=== PATIENT | male | born 1930 | race Caucasian/White ===

== ENCOUNTER 2016-11-24 09:32 | Inpatient (IN) | payer MEDICARE, MEDICAID ==
[~2016-11-24] VITALS: Ht 170.2 cm; Wt 104.1 kg
[~2016-11-24 09:32] MED LIST: ALBUPOW26 INH; ASPI81TA13 PO; CAR3125T NG; CHOL20007 PO; CITA-77 PO; CYAN100023 PO; DOXY-216 PO; FURO20TA3 PO; HYDR-2601 PO; IPR002IS NEB; LOR05T PO; MEMA10TA PO; MULT-775 PO; MULTCAP45 PO; POTA10TA51 PO; RIV20T PO; SIMV20TA90 NG; TAM04C PO
[2016-11-24] MEDS ORDERED: methylPREDNISolone SOD SUCC 125 MG/2 ML VL IV ONE (10:45)
[2016-11-24] MEDS ORDERED: cefTRIAXone 1GM/50ML D5W 50 ML IV ONE (10:45)
[2016-11-24] MEDS ORDERED: IPRATROPIUM BROM 0.5 MG/2.5ML INH SOL NEB ONE (10:45)
[2016-11-24] MEDS ORDERED: ALBUTEROL SULF 2.5 MG/0.5ML(0.5%) NEB SOLN NEB ONE (10:45)
[2016-11-24 11:26] LABS: Basophils # (auto) 0 uL; DEFINITIVE VIEW TRANSMISSION; Eosinophils # (auto) 0 uL; Eosinophils % (auto) 0.3 % (0.0-7.0); Hematocrit 29.3 % (41.0-53.0); Hemoglobin 8.6 g/dL (13.5-17.5); Lymphocytes # (auto) 0.7 uL; Mean Corpuscular Hemoglobin 21.9 pg (28.0-32.0); Mean Corpuscular Hgb Conc. 29.5 g/dL (32.0-36.0); Mean Corpuscular Volume 74.4 fL (80.0-100.0); Mean Platelet Volume 8.9 fL (7.4-10.4); Monocytes # (auto) 0.5 uL; Monocytes % (auto) 5.6 % (0.0-12.0); Neutrophils % (auto) 85.1 % (37.0-80.0); Platelet Count (auto) 269 10^3/uL (140-450); Red Cell Distribution Width 22.5 % (11.6-16.0); White Blood Cell 8.2 10^3/uL (4.4-10.8)
[2016-11-24 11:35] VITALS: BP 119/64
[2016-11-24 11:36] LABS: Platelet Estimate Adequate
[2016-11-24 11:38] LABS: Anisocytosis Moderate; Hypochromia Moderate; Schistocytes FEW
[2016-11-24 11:39] LABS: Ovalocytes FEW; Polychromasia Slight
[2016-11-24 11:40] LABS: Prothrombin Time 11.9 sec (9.37-12.3)
[2016-11-24 11:45] LABS: INR 1.16 (0.9-1.15)
[2016-11-24 11:47] LABS: Albumin 3.3 g/dL (3.4-5.0); BUN/Creatinine Ratio 20.3; Bilirubin, Total 0.3 mg/dL (0.2-1.0); Calcium 8.2 mg/dL (8.5-10.1); Magnesium 2.3 mg/dL (1.6-2.6); Potassium 4.7 mmol/L (3.5-5.1); Total Protein 7.2 g/dL (6.4-8.2)
[2016-11-24 12:00] LABS: B-Type Natriuretic Peptide 206.39 pg/mL (0-100); Temperature: 22.7 C (20.0-25.0)
[2016-11-24] MEDS ORDERED: InsuLIN REG 1unit/0.01ml Soln (100units/ml) SC ONE (12:00)
[2016-11-24] MEDS ORDERED: ENOXAPARIN SOD 100 MG/1 ML SYRINGE SC ONE (12:00)
[2016-11-24 12:15] LABS: Urine RBC None Seen /hpf (0 - 3)
[2016-11-24] MEDS ORDERED: IOHEXOL 350 MG/ML 100ML IJ ONE (12:19)
[2016-11-24 12:31] LABS: Urine Bilirubin Negative (Negative); Urine Blood Negative /uL (Negative); Urine Color Yellow (Yellow); Urine Ketone Negative (Negative); Urine Nitrite Negative (Negative); Urine Urobilinogen Normal (Negative)
[2016-11-24 12:33] LABS: Urine Glucose 2+ mg/dL (Normal)
[2016-11-24] MEDS ORDERED: LISI2.5T47 PO (13:22)
[2016-11-24] MEDS ORDERED: NITROGLYCERIN 0.4 MG SL TAB SL PRN (15:00)
[2016-11-24] MEDS ORDERED: FUROSEMIDE 40 MG/4 ML VIAL IV ONE (15:00)
[2016-11-24] MEDS ORDERED: MORPHINE SULF INJ 2 MG/ML SYRINGE 1ML IV PRN (15:00)
[2016-11-24] MEDS ORDERED: ONDANSETRON HCL 4 MG/2 ML VIAL IV PRN (15:15)
[2016-11-24] MEDS ORDERED: DEXTROSE (50%) 50ML SYRG IV PRN (15:15)
[2016-11-24 15:43] VITALS: BP 148/93
[2016-11-24] MEDS: ACCU-CHEK COMFORT CURVE STRIP VI SCH (18:51)
[2016-11-24] MEDS: InsuLIN REG 1unit/0.01ml Soln (100units/ml) SC SCH (18:53)
[2016-11-24] MEDS: RIVAROXABAN 20 MG TAB PO SCH (19:08)
[2016-11-24] MEDS: IPRATROPIUM BROM 0.5 MG/2.5ML INH SOL NEB SCH (19:13)
[2016-11-24] MEDS: ALBUTEROL SULF 2.5 MG/0.5ML(0.5%) NEB SOLN NEB SCH (19:13)
[2016-11-24 19:58] VITALS: BP 151/76
[2016-11-24 21:49] VITALS: BP 139/70
[2016-11-24] MEDS: CARVEDILOL 3.125 MG TAB PO SCH (22:21)
[2016-11-24] MEDS: ATORVASTATIN 20 MG TAB PO SCH (22:21)
[2016-11-24 23:43] VITALS: BP 150/55
[2016-11-25] VITALS (9 sets, daily range): BP systolic 112–147; BP diastolic 50–82
[2016-11-25] MEDS: ACCU-CHEK COMFORT CURVE STRIP VI SCH ×4 (00:07→17:48)
[2016-11-25] MEDS: InsuLIN REG 1unit/0.01ml Soln (100units/ml) SC SCH ×4 (00:33→17:46)
[2016-11-25 05:54] LABS: DEFINITIVE VIEW TRANSMISSION; Hematocrit 26.9 % (41.0-53.0); Hemoglobin 7.9 g/dL (13.5-17.5); Mean Corpuscular Hemoglobin 21.7 pg (28.0-32.0); Mean Corpuscular Hgb Conc. 29.4 g/dL (32.0-36.0); Mean Corpuscular Volume 73.9 fL (80.0-100.0); Platelet Count (auto) 255 10^3/uL (140-450); White Blood Cell 7.3 10^3/uL (4.4-10.8)
[2016-11-25 06:11] LABS: Calcium 8.4 mg/dL (8.5-10.1)
[2016-11-25 06:14] LABS: BUN/Creatinine Ratio 23.8
[2016-11-25 06:18] LABS: Red Cell Distribution Width 22.8 % (11.6-16.0)
[2016-11-25 06:19] LABS: Metamyelocytes % 0; Myelocytes % 0; Promyelocytes % 0; Reactive Lymphocytes 0
[2016-11-25] MEDS: IPRATROPIUM BROM 0.5 MG/2.5ML INH SOL NEB SCH ×4 (06:29→14:43)
[2016-11-25] MEDS: ALBUTEROL SULF 2.5 MG/0.5ML(0.5%) NEB SOLN NEB SCH ×4 (06:29→14:43)
[2016-11-25] MEDS: BUDESONIDE (INHALATION) 0.5 MG/2 ML NEB NEB SCH ×2 (06:29→19:03)
[2016-11-25 06:51] LABS: Anisocytosis Slight; Hypochromia Slight; Platelet Estimate Adequate
[2016-11-25] MEDS: CARVEDILOL 3.125 MG TAB PO SCH ×2 (10:00→22:21)
[2016-11-25] MEDS ORDERED: FUROSEMIDE 40 MG/4 ML VIAL IV SCH (10:00)
[2016-11-25] MEDS: POTASSIUM CHL 20 Meq TABLET PO SCH (10:08)
[2016-11-25] MEDS: LISINOPRIL 5 MG TAB PO SCH (10:09)
[2016-11-25] MEDS: HYDROcodone-ACET 5/325MG TAB PO PRN (14:37)
[2016-11-25] MEDS: RIVAROXABAN 20 MG TAB PO SCH (18:01)
[2016-11-25] MEDS: ATORVASTATIN 20 MG TAB PO SCH (22:21)
[2016-11-26] MEDS: ACCU-CHEK COMFORT CURVE STRIP VI SCH ×4 (00:51→18:00)
[2016-11-26 05:00] VITALS: BP 134/58
[2016-11-26] MEDS: BUDESONIDE (INHALATION) 0.5 MG/2 ML NEB NEB SCH ×2 (06:04→18:10)
[2016-11-26] MEDS: ALBUTEROL SULF 2.5 MG/0.5ML(0.5%) NEB SOLN NEB SCH ×4 (06:04→18:33)
[2016-11-26] MEDS: IPRATROPIUM BROM 0.5 MG/2.5ML INH SOL NEB SCH ×4 (06:04→18:33)
[2016-11-26] MEDS: InsuLIN REG 1unit/0.01ml Soln (100units/ml) SC SCH ×4 (06:18→18:00)
[2016-11-26] MEDS ORDERED: FUROSEMIDE 40 MG/4 ML VIAL IV ONE (08:15)
[2016-11-26 09:14] LABS: DEFINITIVE VIEW TRANSMISSION; Hematocrit 26.6 % (41.0-53.0); Mean Corpuscular Volume 73.4 fL (80.0-100.0); Platelet Count (auto) 260 10^3/uL (140-450); Red Cell Distribution Width 22.3 % (11.6-16.0); White Blood Cell 8.2 10^3/uL (4.4-10.8)
[2016-11-26 09:21] LABS: Metamyelocytes % 0; Myelocytes % 0; Promyelocytes % 0; Reactive Lymphocytes 0
[2016-11-26 09:22] VITALS: BP 129/65
[2016-11-26 09:31] LABS: Anisocytosis Slight; Hypochromia Slight; Platelet Estimate Adequate
[2016-11-26 09:36] LABS: Calcium 8.2 mg/dL (8.5-10.1); Potassium 3.9 mmol/L (3.5-5.1)
[2016-11-26] MEDS: LISINOPRIL 5 MG TAB PO SCH (10:15)
[2016-11-26] MEDS: POTASSIUM CHL 20 Meq TABLET PO SCH (10:15)
[2016-11-26] MEDS: CARVEDILOL 3.125 MG TAB PO SCH ×2 (10:15→21:42)
[2016-11-26] MEDS: HYDROcodone-ACET 5/325MG TAB PO PRN (10:32)
[2016-11-26 13:13] VITALS: BP 112/47
[2016-11-26 15:22] VITALS: BP 115/49
[2016-11-26] MEDS: RIVAROXABAN 20 MG TAB PO SCH (18:56)
[2016-11-26 21:38] VITALS: BP 135/69
[2016-11-26] MEDS: ATORVASTATIN 20 MG TAB PO SCH (21:42)
[2016-11-27] MEDS: InsuLIN REG 1unit/0.01ml Soln (100units/ml) SC SCH ×4 (00:52→17:32)
[2016-11-27 04:34] VITALS: BP 116/69
[2016-11-27] MEDS: HYDROcodone-ACET 5/325MG TAB PO PRN ×2 (05:35→17:28)
[2016-11-27] MEDS: ACCU-CHEK COMFORT CURVE STRIP VI SCH ×4 (05:36→17:32)
[2016-11-27] MEDS: ALBUTEROL SULF 2.5 MG/0.5ML(0.5%) NEB SOLN NEB SCH ×4 (06:00→18:16)
[2016-11-27] MEDS: IPRATROPIUM BROM 0.5 MG/2.5ML INH SOL NEB SCH ×4 (06:00→18:16)
[2016-11-27 06:16] LABS: BUN/Creatinine Ratio 28.6; Calcium 8.3 mg/dL (8.5-10.1); Potassium 3.6 mmol/L (3.5-5.1)
[2016-11-27 06:19] LABS: DEFINITIVE VIEW TRANSMISSION; Hematocrit 27.3 % (41.0-53.0); Hemoglobin 8.1 g/dL (13.5-17.5); Mean Corpuscular Hemoglobin 21.7 pg (28.0-32.0); Mean Corpuscular Hgb Conc. 29.8 g/dL (32.0-36.0); Mean Corpuscular Volume 73.1 fL (80.0-100.0); Mean Platelet Volume 9.2 fL (7.4-10.4); Platelet Count (auto) 255 10^3/uL (140-450); Red Cell Distribution Width 22.2 % (11.6-16.0); White Blood Cell 6.6 10^3/uL (4.4-10.8)
[2016-11-27 07:29] LABS: Metamyelocytes % 0; Myelocytes % 0; Promyelocytes % 0; Reactive Lymphocytes 0
[2016-11-27 08:00] VITALS: BP 128/71
[2016-11-27 08:22] LABS: Anisocytosis Slight; Hypochromia Slight; Platelet Estimate Adequate; Polychromasia Slight
[2016-11-27] MEDS: BUDESONIDE (INHALATION) 0.5 MG/2 ML NEB NEB SCH ×2 (10:25→18:16)
[2016-11-27] MEDS: POTASSIUM CHL 20 Meq TABLET PO SCH (10:26)
[2016-11-27] MEDS: LISINOPRIL 5 MG TAB PO SCH (10:27)
[2016-11-27] MEDS: CARVEDILOL 3.125 MG TAB PO SCH ×2 (10:27→22:12)
[2016-11-27] MEDS: FUROSEMIDE 40 MG/4 ML VIAL IV SCH (10:27)
[2016-11-27 12:00] VITALS: BP 107/54
[2016-11-27 12:43] VITALS: BP 128/71
[2016-11-27 16:00] VITALS: BP 137/54
[2016-11-27] MEDS: RIVAROXABAN 20 MG TAB PO SCH (17:27)
[2016-11-27] MEDS: FERROUS SULFATE 325 MG TAB PO SCH (17:27)
[2016-11-27 22:00] VITALS: BP 110/56
[2016-11-27] MEDS: ATORVASTATIN 20 MG TAB PO SCH (22:12)
[2016-11-28 05:30] VITALS: BP 121/68
[2016-11-28] MEDS: ACCU-CHEK COMFORT CURVE STRIP VI SCH ×3 (06:15→12:04)
[2016-11-28] MEDS: InsuLIN REG 1unit/0.01ml Soln (100units/ml) SC SCH ×3 (06:16→14:10)
[2016-11-28] MEDS: IPRATROPIUM BROM 0.5 MG/2.5ML INH SOL NEB SCH ×3 (06:54→14:20)
[2016-11-28] MEDS: ALBUTEROL SULF 2.5 MG/0.5ML(0.5%) NEB SOLN NEB SCH ×4 (06:54→14:27)
[2016-11-28 07:30] VITALS: BP 114/50
[2016-11-28] MEDS: FERROUS SULFATE 325 MG TAB PO SCH (08:45)
[2016-11-28] MEDS: LISINOPRIL 5 MG TAB PO SCH (10:00)
[2016-11-28] MEDS: CARVEDILOL 3.125 MG TAB PO SCH (10:00)
[2016-11-28] MEDS: BUDESONIDE (INHALATION) 0.5 MG/2 ML NEB NEB SCH (10:08)
[2016-11-28] MEDS: FUROSEMIDE 40 MG/4 ML VIAL IV SCH (10:27)
[2016-11-28] MEDS: POTASSIUM CHL 20 Meq TABLET PO SCH (10:27)
[2016-11-28 12:47] VITALS: BP_SYST 134
[2016-11-28 14:32] VITALS: BP 114/50
== END 2016-11-28 15:45 | disposition home or self-care (01) | DRG 291 ==
LOC: EDUNIT# 09:32 → EDBD 09:32 → ER 09:36 → TELE 09:37 → DOU IN ICU 23:06 → CENTRAL 11-25 11:24 → TELE-CENTR 11-25 19:43
PROVIDERS: ADMIT Internal Medicine; ATTEND Internal Medicine
PROC: 5A09457 Assistance with Respiratory Ventilation, 24-96 Consecutive Hours, Continuous Positive Airway Pressure (ICD-10-PCS; principal; 2016-11-24)
DX: I50.33 Acute on chronic diastolic (congestive) heart failure (principal); J96.20 Acute and chronic respiratory failure, unspecified whether with hypoxia or hypercapnia; G93.41 Metabolic encephalopathy; J18.9 Pneumonia, unspecified organism; D68.69 Other thrombophilia; E87.2 Acidosis; J44.1 Chronic obstructive pulmonary disease with (acute) exacerbation; J45.901 Unspecified asthma with (acute) exacerbation; I11.0 Hypertensive heart disease with heart failure; D64.9 Anemia, unspecified; E11.9 Type 2 diabetes mellitus without complications; E66.01 Morbid (severe) obesity due to excess calories; E78.00 Pure hypercholesterolemia, unspecified; E78.5 Hyperlipidemia, unspecified; I48.2 Chronic atrial fibrillation; I67.2 Cerebral atherosclerosis; I70.0 Atherosclerosis of aorta; K21.9 Gastro-esophageal reflux disease without esophagitis; K80.20 Calculus of gallbladder without cholecystitis without obstruction; Z82.49 Family history of ischemic heart disease and other diseases of the circulatory system; Z86.718 Personal history of other venous thrombosis and embolism; Z86.73 Personal history of transient ischemic attack (TIA), and cerebral infarction without residual deficits; Z87.891 Personal history of nicotine dependence; Z99.81 Dependence on supplemental oxygen; Z68.35 Body mass index [BMI] 35.0-35.9, adult
CPT/HCPCS: 36415; 36600; 51702; 70450; 71010; 71020; 71275; 80048; 80053; 81001; 82805; 82962; 83605; 83735; 83880; 84484; 85007; 85025; 85027; 85379; 85610; 85730; 87040; 87081; 93005; 93970; 94640; 94660; 96365; 96372; 96375; 97001; 99291; J0696; J1815

== ENCOUNTER 2017-12-07 20:51 | Inpatient (IN) | payer MEDICARE, MEDICAID ==
[~2017-12-07] VITALS: Ht 167.6 cm; Wt 103.5 kg
[~2017-12-07 20:51] MED LIST changes: -CHOL20007 PO; -CYAN100023 PO; -IPR002IS NEB; +LISI2.5T47 PO; -LOR05T PO; +LORA-654 PO; -MULT-775 PO; -MULTCAP45 PO; -POTA10TA51 PO; +POTA20TA53 PO
[2017-12-07 21:35] LABS: Basophils # (auto) 0 uL; Eosinophils # (auto) 0.1 uL; Eosinophils % (auto) 1.2 % (0.0-7.0); Monocytes # (auto) 0.8 uL; White Blood Cell 6.6 10^3/uL (4.4-10.8)
[2017-12-07 21:48] LABS: Basophils % (auto) 0.7 % (0.0-2.0); Hematocrit 28.1 % (41.0-53.0); Hemoglobin 8.4 g/dL (13.5-17.5); Lymphocytes # (auto) 1.4 uL; Lymphocytes % (auto) 21.1 % (10.0-50.0); Mean Corpuscular Hemoglobin 22.4 pg (28.0-32.0); Mean Corpuscular Volume 74.6 fL (80.0-100.0); Monocytes % (auto) 12.5 % (0.0-12.0); Neutrophils # (auto) 4.2 uL; Neutrophils % (auto) 64.5 % (37.0-80.0); Platelet Count (auto) 205 10^3/uL (140-450); Red Blood Cells 3.76 10^6/uL (4.5-5.90)
[2017-12-07 21:49] LABS: Red Cell Distribution Width 25.6 % (11.8-14.3)
[2017-12-07 21:54] LABS: Albumin 3.1 g/dL (3.4-5.0); BUN/Creatinine Ratio 22.7; Calcium 7.8 mg/dL (8.5-10.1); Magnesium 2.4 mg/dL (1.6-2.6); Potassium 4.4 mmol/L (3.5-5.1)
[2017-12-07 21:59] LABS: Bilirubin, Total 0.2 mg/dL (0.2-1.0); Total Protein 7.3 g/dL (6.4-8.2)
[2017-12-07 22:12] LABS: INR 1.2 (0.9-1.15); Partial Thromboplastin Time 30.2 sec (22.64-33.71); Prothrombin Time 13.1 sec (9.37-12.3)
[2017-12-07] MEDS ORDERED: LEVOFLOXACIN 750MG 150 ML IV ONE (23:45)
[2017-12-07] MEDS ORDERED: FUROSEMIDE 20 MG/2 ML VIAL IV ONE (23:45)
[2017-12-08] MEDS ORDERED: HYDROcodone-ACET 5/325MG TAB PO ONE (00:15)
[2017-12-08 01:59] VITALS: BP 147/75
[2017-12-08 03:43] VITALS: BP 147/75
[2017-12-08] MEDS ORDERED: LORazepam 0.5 MG TAB PO PRN (04:30)
[2017-12-08] MEDS ORDERED: ACETAMINOPHEN 500 MG TAB PO PRN (04:30)
[2017-12-08 08:03] LABS: Basophils # (auto) 0 uL; Eosinophils # (auto) 0.1 uL; Hemoglobin 8.4 g/dL (13.5-17.5); Monocytes # (auto) 0.7 uL; White Blood Cell 5.8 10^3/uL (4.4-10.8)
[2017-12-08 08:07] LABS: Basophils % (auto) 0.7 % (0.0-2.0); Eosinophils % (auto) 2.1 % (0.0-7.0); Lymphocytes # (auto) 1.3 uL; Lymphocytes % (auto) 22.5 % (10.0-50.0); Mean Corpuscular Hemoglobin 22.4 pg (28.0-32.0); Mean Corpuscular Hgb Conc. 29.8 g/dL (32.0-36.0); Monocytes % (auto) 11.9 % (0.0-12.0); Neutrophils # (auto) 3.7 uL; Neutrophils % (auto) 62.8 % (37.0-80.0); Platelet Count (auto) 192 10^3/uL (140-450); Red Blood Cells 3.74 10^6/uL (4.5-5.90); Red Cell Distribution Width 25.1 % (11.8-14.3)
[2017-12-08] MEDS: HYDROcodone-ACET 5/325MG TAB PO PRN ×2 (08:18→22:07)
[2017-12-08 08:34] LABS: BUN/Creatinine Ratio 23.5; Calcium 8.2 mg/dL (8.5-10.1); Potassium 4.1 mmol/L (3.5-5.1)
[2017-12-08] MEDS ORDERED: FUROSEMIDE 40 MG/4 ML VIAL IV ONE (10:15)
[2017-12-08] MEDS: CITALOPRAM HYDROBR 20 MG TAB PO SCH (10:45)
[2017-12-08] MEDS: CARVEDILOL 3.125 MG TAB PO SCH ×2 (10:45→22:06)
[2017-12-08] MEDS: LISINOPRIL 5 MG TAB PO SCH (10:46)
[2017-12-08 15:40] VITALS: BP 133/60
[2017-12-08 17:00] VITALS: BP 133/60
[2017-12-08] MEDS: TAMSULOSIN HYDROCHLORIDE 0.4 MG CAP PO SCH (18:11)
[2017-12-08 21:19] LABS: Urine Bacteria None Seen /hpf (None Seen)
[2017-12-08 21:38] LABS: Urine Blood Negative /uL (Negative)
[2017-12-08 21:44] LABS: Urine WBC 1 /hpf (0 - 3)
[2017-12-08 22:00] VITALS: BP 129/58
[2017-12-09] VITALS (7 sets, daily range): BP systolic 99–149; BP diastolic 44–76
[2017-12-09] MEDS: ALBUTEROL SULF 2.5 MG/0.5ML(0.5%) NEB SOLN NEB PRN ×2 (08:30→21:27)
[2017-12-09] MEDS: CITALOPRAM HYDROBR 20 MG TAB PO SCH (11:18)
[2017-12-09] MEDS: LISINOPRIL 5 MG TAB PO SCH (11:20)
[2017-12-09] MEDS: CARVEDILOL 3.125 MG TAB PO SCH (11:21)
[2017-12-09] MEDS: HYDROcodone-ACET 5/325MG TAB PO PRN (17:24)
[2017-12-09] MEDS: FUROSEMIDE 40 MG/4 ML VIAL IV SCH (17:27)
[2017-12-09] MEDS: TAMSULOSIN HYDROCHLORIDE 0.4 MG CAP PO SCH (17:45)
[2017-12-10] VITALS (7 sets, daily range): BP systolic 105–134; BP diastolic 41–75
[2017-12-10] MEDS: CARVEDILOL 3.125 MG TAB PO SCH ×3 (00:08→22:14)
[2017-12-10] MEDS: FUROSEMIDE 40 MG/4 ML VIAL IV SCH ×2 (06:36→10:21)
[2017-12-10] MEDS ORDERED: acetaZOLAMIDE SODIUM 500 MG VL IV ONE (07:45)
[2017-12-10] MEDS: CITALOPRAM HYDROBR 20 MG TAB PO SCH (10:21)
[2017-12-10] MEDS: LISINOPRIL 5 MG TAB PO SCH (10:22)
[2017-12-10] MEDS: HYDROcodone-ACET 5/325MG TAB PO PRN (10:23)
[2017-12-10] MEDS: ALBUTEROL SULF 2.5 MG/0.5ML(0.5%) NEB SOLN NEB PRN (11:20)
[2017-12-10] MEDS: methylPREDNISolone SOD SUCC 40 MG/ML VL IV SCH ×2 (12:46→18:10)
[2017-12-10] MEDS: TAMSULOSIN HYDROCHLORIDE 0.4 MG CAP PO SCH (18:10)
[2017-12-11] VITALS (8 sets, daily range): BP systolic 97–130; BP diastolic 37–81
[2017-12-11] MEDS: methylPREDNISolone SOD SUCC 40 MG/ML VL IV SCH ×3 (00:06→12:23)
[2017-12-11] MEDS: HYDROcodone-ACET 5/325MG TAB PO PRN ×2 (08:47→20:03)
[2017-12-11] MEDS: CITALOPRAM HYDROBR 20 MG TAB PO SCH (10:07)
[2017-12-11] MEDS: FUROSEMIDE 40 MG/4 ML VIAL IV SCH (10:07)
[2017-12-11] MEDS: LISINOPRIL 5 MG TAB PO SCH (10:08)
[2017-12-11] MEDS: CARVEDILOL 3.125 MG TAB PO SCH ×2 (10:08→21:50)
[2017-12-11] MEDS: DOXYCYCLINE HYC 100MG/250ML 250 ML IV SCH (17:04)
[2017-12-11] MEDS: TAMSULOSIN HYDROCHLORIDE 0.4 MG CAP PO SCH (18:40)
[2017-12-11] MEDS: ALBUTEROL SULF 2.5 MG/0.5ML(0.5%) NEB SOLN NEB SCH (19:10)
[2017-12-11] MEDS: BUDESONIDE (INHALATION) 0.5 MG/2 ML NEB NEB SCH (19:11)
[2017-12-11] MEDS: IPRATROPIUM BROM 0.5 MG/2.5ML INH SOL NEB SCH (19:11)
[2017-12-11] MEDS: LORazepam 0.5 MG TAB PO SCH (21:49)
[2017-12-11] MEDS: ATORVASTATIN 20 MG TAB PO SCH (21:50)
[2017-12-12] MEDS: IPRATROPIUM BROM 0.5 MG/2.5ML INH SOL NEB SCH ×4 (00:19→19:57)
[2017-12-12] MEDS: ALBUTEROL SULF 2.5 MG/0.5ML(0.5%) NEB SOLN NEB SCH ×4 (00:19→19:57)
[2017-12-12] MEDS: DOXYCYCLINE HYC 100MG/250ML 250 ML IV SCH (02:11)
[2017-12-12] MEDS: HYDROcodone-ACET 5/325MG TAB PO PRN ×2 (04:16→14:06)
[2017-12-12 05:16] VITALS: BP 110/50
[2017-12-12] MEDS: BUDESONIDE (INHALATION) 0.5 MG/2 ML NEB NEB SCH ×2 (06:49→19:57)
[2017-12-12 08:28] LABS: Basophils # (auto) 0 uL; Eosinophils # (auto) 0 uL; Eosinophils % (auto) 0.1 % (0.0-7.0); Hemoglobin 8.8 g/dL (13.5-17.5)
[2017-12-12 08:30] LABS: Basophils % (auto) 0.2 % (0.0-2.0); Hematocrit 29.2 % (41.0-53.0); Lymphocytes % (auto) 16.5 % (10.0-50.0); Mean Corpuscular Hemoglobin 22.5 pg (28.0-32.0); Mean Corpuscular Hgb Conc. 30.2 g/dL (32.0-36.0); Mean Corpuscular Volume 74.3 fL (80.0-100.0); Monocytes # (auto) 0.8 uL; Monocytes % (auto) 12.8 % (0.0-12.0); Neutrophils # (auto) 4.1 uL; Neutrophils % (auto) 70.4 % (37.0-80.0); Nucleated Red Blood Cells % 0.1 %; Platelet Count (auto) 182 10^3/uL (140-450); Red Blood Cells 3.93 10^6/uL (4.5-5.90); Red Cell Distribution Width 24.5 % (11.8-14.3); White Blood Cell 5.9 10^3/uL (4.4-10.8)
[2017-12-12 08:32] LABS: Albumin 3.2 g/dL (3.4-5.0); BUN/Creatinine Ratio 44.3; Bilirubin, Total 0.3 mg/dL (0.2-1.0); Calcium 8.2 mg/dL (8.5-10.1); Potassium 3.6 mmol/L (3.5-5.1); Total Protein 7.4 g/dL (6.4-8.2)
[2017-12-12 09:00] VITALS: BP 128/54
[2017-12-12] MEDS: CITALOPRAM HYDROBR 20 MG TAB PO SCH (09:59)
[2017-12-12] MEDS: FUROSEMIDE 40 MG/4 ML VIAL IV SCH (09:59)
[2017-12-12] MEDS: LORazepam 0.5 MG TAB PO SCH (09:59)
[2017-12-12] MEDS: POTASSIUM CHL 10 Meq TABLET PO SCH (09:59)
[2017-12-12] MEDS: CARVEDILOL 3.125 MG TAB PO SCH ×2 (10:00→21:25)
[2017-12-12] MEDS: MEMANTINE HCL 5 MG TAB PO SCH (10:00)
[2017-12-12] MEDS: LISINOPRIL 5 MG TAB PO SCH (10:01)
[2017-12-12] MEDS ORDERED: DOCUSATE SOD 100 MG CAP PO ONE (10:45)
[2017-12-12 13:00] VITALS: BP 108/47
[2017-12-12 17:00] VITALS: BP 115/60
[2017-12-12] MEDS: TAMSULOSIN HYDROCHLORIDE 0.4 MG CAP PO SCH (17:53)
[2017-12-12 21:21] VITALS: BP 105/53
[2017-12-12] MEDS: DOCUSATE SOD 100 MG CAP PO SCH (21:25)
[2017-12-12] MEDS: ATORVASTATIN 20 MG TAB PO SCH (21:26)
[2017-12-12] MEDS: DOXYCYCLINE 100 MG TAB/CAP PO SCH (21:26)
[2017-12-12] MEDS ORDERED: LORazepam 0.5 MG TAB PO PRN (22:00)
[2017-12-13] MEDS: IPRATROPIUM BROM 0.5 MG/2.5ML INH SOL NEB SCH ×3 (00:14→12:25)
[2017-12-13] MEDS: ALBUTEROL SULF 2.5 MG/0.5ML(0.5%) NEB SOLN NEB SCH ×3 (00:15→12:24)
[2017-12-13] MEDS: HYDROcodone-ACET 5/325MG TAB PO PRN ×2 (03:34→09:20)
[2017-12-13 05:10] VITALS: BP 127/66
[2017-12-13] MEDS: BUDESONIDE (INHALATION) 0.5 MG/2 ML NEB NEB SCH (07:29)
[2017-12-13 07:49] VITALS: BP 124/68
[2017-12-13] MEDS: DOCUSATE SOD 100 MG CAP PO SCH (09:14)
[2017-12-13] MEDS: LISINOPRIL 5 MG TAB PO SCH (09:16)
[2017-12-13] MEDS: CITALOPRAM HYDROBR 20 MG TAB PO SCH (09:17)
[2017-12-13] MEDS: POTASSIUM CHL 10 Meq TABLET PO SCH (09:17)
[2017-12-13] MEDS: DOXYCYCLINE 100 MG TAB/CAP PO SCH (09:18)
[2017-12-13] MEDS: MEMANTINE HCL 5 MG TAB PO SCH (09:18)
[2017-12-13] MEDS: CARVEDILOL 3.125 MG TAB PO SCH (09:19)
[2017-12-13] MEDS ORDERED: LISI-275 PO (09:20)
[2017-12-13] MEDS ORDERED: FUROSEMIDE 40 MG TAB PO SCH (10:00)
[2017-12-13 11:08] VITALS: BP 124/68
[2017-12-13 11:42] VITALS: BP 124/61
== END 2017-12-13 16:59 | disposition home health service (06) | DRG 291 ==
LOC: EDBD 20:51 → ER 20:51 → TELE 20:52 → EDUNIT# 20:52 → TELE-EAST 12-08 15:34
PROVIDERS: ADMIT Nurse Practitioner Family; ATTEND Internal Medicine
PROC: 5A09357 Assistance with Respiratory Ventilation, Less than 24 Consecutive Hours, Continuous Positive Airway Pressure (ICD-10-PCS; principal; 2017-12-08)
PROC: 5A09357 Assistance with Respiratory Ventilation, Less than 24 Consecutive Hours, Continuous Positive Airway Pressure (ICD-10-PCS; 2017-12-13)
DX: I11.0 Hypertensive heart disease with heart failure (principal); J96.21 Acute and chronic respiratory failure with hypoxia; J18.9 Pneumonia, unspecified organism; I48.1 Persistent atrial fibrillation; J44.1 Chronic obstructive pulmonary disease with (acute) exacerbation; I69.354 Hemiplegia and hemiparesis following cerebral infarction affecting left non-dominant side; I48.2 Chronic atrial fibrillation; E11.9 Type 2 diabetes mellitus without complications; D50.9 Iron deficiency anemia, unspecified; J96.22 Acute and chronic respiratory failure with hypercapnia; I50.43 Acute on chronic combined systolic (congestive) and diastolic (congestive) heart failure; E78.5 Hyperlipidemia, unspecified; F03.90 Unspecified dementia, unspecified severity, without behavioral disturbance, psychotic disturbance, mood disturbance, and anxiety; F41.9 Anxiety disorder, unspecified; I25.10 Atherosclerotic heart disease of native coronary artery without angina pectoris; M10.9 Gout, unspecified; E66.9 Obesity, unspecified; M19.90 Unspecified osteoarthritis, unspecified site; N40.0 Benign prostatic hyperplasia without lower urinary tract symptoms; Z79.82 Long term (current) use of aspirin; Z79.899 Other long term (current) drug therapy; Z82.49 Family history of ischemic heart disease and other diseases of the circulatory system; Z99.81 Dependence on supplemental oxygen; Z88.2 Allergy status to sulfonamides; Z68.36 Body mass index [BMI] 36.0-36.9, adult
CPT/HCPCS: 36415; 36600; 71045; 80048; 80053; 81001; 82805; 83036; 83735; 83880; 84484; 85025; 85379; 85610; 85730; 87081; 93005; 94640; 94660; 96365; 96375; 96376; 97116; 97163; 97530; J1956; J3490

== ENCOUNTER 2018-05-05 10:30 | Inpatient (IN) | payer MEDICARE, MEDICAID ==
[~2018-05-05] VITALS: Ht 180.3 cm; Wt 105.8 kg
[~2018-05-05 10:30] MED LIST changes: +ASPI-498 OR; +CARV3.1240 PO; +FURO40TA4 PO; +HYDR-4683 PO; +LISI-275 PO; +MEM5T PO; +POTA10TA51 PO; +SIMV-8 PO; +TAMS0.4C36 PO
[2018-05-05] MEDS ORDERED: PANTOPRAZOLE 40 MG/10 ML VIAL IV STA (10:38)
[2018-05-05 11:02] LABS: Basophils # (auto) 0 uL; Eosinophils # (auto) 0.1 uL; Eosinophils % (auto) 1.1 % (0.0-7.0); Hemoglobin 8.2 g/dL (13.5-17.5); Lymphocytes # (auto) 1.8 uL; Monocytes # (auto) 0.6 uL
[2018-05-05 11:03] LABS: Basophils % (auto) 0.4 % (0.0-2.0); Hematocrit 26.2 % (41.0-53.0); Lymphocytes % (auto) 27.3 % (10.0-50.0); Mean Corpuscular Hemoglobin 27.7 pg (28.0-32.0); Mean Corpuscular Hgb Conc. 31.2 g/dL (32.0-36.0); Mean Corpuscular Volume 88.6 fL (80.0-100.0); Monocytes % (auto) 8.4 % (0.0-12.0); Neutrophils # (auto) 4.1 uL; Neutrophils % (auto) 62.8 % (37.0-80.0); Platelet Count (auto) 229 10^3/uL (140-450); Red Blood Cells 2.96 10^6/uL (4.5-5.90); Red Cell Distribution Width 18.8 % (11.8-14.3); White Blood Cell 6.6 10^3/uL (4.4-10.8)
[2018-05-05 11:21] LABS: Alanine Aminotransferase 14 U/L (16-61); Albumin 3.3 g/dL (3.4-5.0); Alkaline Phosphatase 78 U/L (45-117); Amylase 42 U/L (25-115); Anion Gap 6 (5-15); Aspartate Aminotransferase 13 U/L (15-37); BUN/Creatinine Ratio 21.2; Bilirubin, Total 0.1 mg/dL (0.2-1.0); Blood Urea Nitrogen 22 mg/dL (7-18); Calcium 8.1 mg/dL (8.5-10.1); Carbon Dioxide 32 mmol/L (21-32); Chloride 103 mmol/L (98-107); GFR African American 87 mL/min; GFR Non-African American 72 mL/min; Glucose 284 mg/dL (74-106); Lipase 152 U/L (73-393); Magnesium 2.4 mg/dL (1.6-2.6); Potassium 4.3 mmol/L (3.5-5.1); Sodium 141 mmol/L (136-145); Total Protein 7.2 g/dL (6.4-8.2)
[2018-05-05] MEDS ORDERED: HYDROcodone-ACET 10/325MG TAB PO ONE (11:30)
[2018-05-05] MEDS ORDERED: MORPHINE SULFATE 8mg/ml INJ SDV IV ONE (11:30)
[2018-05-05 12:24] LABS: Urine Bacteria NONE SEEN /hpf (None Seen); Urine Blood Negative /uL (Negative); Urine Specific Gravity 1.012 (1.001-1.035); Urine WBC <1 /hpf (0 - 3)
[2018-05-05] MEDS ORDERED: SODIUM CHLORIDE 0.9% 1,000 ML IV SCH (15:13)
[2018-05-05] MEDS ORDERED: MORPHINE SULF INJ 2 MG/ML SYRINGE 1ML IV PRN (15:15)
[2018-05-05] MEDS ORDERED: DEXTROSE (50%) 50ML SYRG IV PRN (15:15)
[2018-05-05] MEDS ORDERED: NITROGLYCERIN 0.4 MG SL TAB SL PRN (15:15)
[2018-05-05] MEDS ORDERED: ONDANSETRON HCL 4 MG/2 ML VIAL IV PRN (15:15)
[2018-05-05] MEDS ORDERED: ACETAMINOPHEN 325 MG TAB PO PRN (15:15)
[2018-05-05] MEDS ORDERED: TEMAZEPAM 15 MG CAP PO PRN (15:15)
[2018-05-05] MEDS ORDERED: LORazepam 0.5 MG TAB PO PRN (15:15)
[2018-05-05] MEDS ORDERED: DOCUSATE SOD 100 MG CAP PO PRN (15:15)
[2018-05-05] MEDS ORDERED: PANTOPRAZOLE 40 MG TAB PO ONE (15:30)
[2018-05-05 15:43] LABS: Hematocrit 25.2 % (41.0-53.0)
[2018-05-05 16:10] VITALS: BP 121/62
[2018-05-05] MEDS: InsuLIN REG 1unit/0.01ml Soln (100units/ml) SC SCH ×2 (17:00→21:46)
[2018-05-05] MEDS: ACCU-CHEK COMFORT CURVE STRIP VI SCH ×2 (17:00→21:46)
[2018-05-05] MEDS: Boost Glucose Control 8 Ounces PO SCH (18:56)
[2018-05-05] MEDS: TAMSULOSIN HYDROCHLORIDE 0.4 MG CAP PO SCH (18:57)
[2018-05-05] MEDS: ALBUTEROL SULF 2.5 MG/0.5ML(0.5%) NEB SOLN NEB SCH (18:58)
[2018-05-05] MEDS: HYDROcodone-ACET 5/325MG TAB PO PRN (19:29)
[2018-05-05] MEDS: ATORVASTATIN 20 MG TAB PO SCH (21:42)
[2018-05-05] MEDS: MEMANTINE HCL 5 MG TAB PO SCH (21:42)
[2018-05-05] MEDS: FAMOTIDINE 20 MG TAB PO SCH (21:42)
[2018-05-05 21:45] VITALS: BP 112/81
[2018-05-05 21:59] LABS: Hematocrit 24.9 % (41.0-53.0)
[2018-05-06] MEDS: ALBUTEROL SULF 2.5 MG/0.5ML(0.5%) NEB SOLN NEB SCH ×4 (00:37→19:17)
[2018-05-06 05:31] LABS: Basophils # (auto) 0 uL; Basophils % (auto) 0.4 % (0.0-2.0); Eosinophils # (auto) 0.1 uL; Hemoglobin 8.1 g/dL (13.5-17.5); Neutrophils # (auto) 4.1 uL
[2018-05-06 05:35] LABS: Eosinophils % (auto) 1.6 % (0.0-7.0); Hematocrit 25.1 % (41.0-53.0); Lymphocytes % (auto) 28.6 % (10.0-50.0); Mean Corpuscular Hemoglobin 28.2 pg (28.0-32.0); Mean Corpuscular Hgb Conc. 32.2 g/dL (32.0-36.0); Mean Corpuscular Volume 87.6 fL (80.0-100.0); Monocytes # (auto) 0.8 uL; Neutrophils % (auto) 58.4 % (37.0-80.0); Platelet Count (auto) 207 10^3/uL (140-450); Red Blood Cells 2.87 10^6/uL (4.5-5.90); Red Cell Distribution Width 18.4 % (11.8-14.3)
[2018-05-06 05:41] VITALS: BP_SYST 101; BP_SYST 146; BP_DIAS 71; BP_DIAS 77
[2018-05-06] MEDS: HYDROcodone-ACET 5/325MG TAB PO PRN ×2 (05:44→11:31)
[2018-05-06 05:49] LABS: BUN/Creatinine Ratio 25.3; Calcium 8.1 mg/dL (8.5-10.1); Potassium 4.4 mmol/L (3.5-5.1)
[2018-05-06 05:52] LABS: Bilirubin, Total 0.2 mg/dL (0.2-1.0); Total Protein 6.6 g/dL (6.4-8.2)
[2018-05-06] MEDS: InsuLIN REG 1unit/0.01ml Soln (100units/ml) SC SCH ×4 (06:16→22:28)
[2018-05-06] MEDS: ACCU-CHEK COMFORT CURVE STRIP VI SCH ×4 (06:22→22:21)
[2018-05-06] MEDS: Boost Glucose Control 8 Ounces PO SCH ×3 (08:00→18:00)
[2018-05-06 09:00] VITALS: BP 119/59
[2018-05-06] MEDS: FAMOTIDINE 20 MG TAB PO SCH ×2 (11:10→22:19)
[2018-05-06] MEDS: MULTIPLE VITAMIN TAB PO SCH (11:11)
[2018-05-06] MEDS: CITALOPRAM HYDROBR 20 MG TAB PO SCH (11:11)
[2018-05-06] MEDS: MAGNESIUM OXIDE 400 MG TAB PO SCH (11:11)
[2018-05-06] MEDS: MEMANTINE HCL 5 MG TAB PO SCH ×2 (11:12→22:19)
[2018-05-06] MEDS: PANTOPRAZOLE 40 MG TAB PO SCH (11:12)
[2018-05-06] MEDS: POTASSIUM CHL 20 Meq TABLET PO SCH (11:12)
[2018-05-06] MEDS: CHOLECALCIFEROL (VITD3) 1,000 UNIT TAB PO SCH (11:13)
[2018-05-06] MEDS: B-COMPLEX W/ C & FOLIC ACID(NEPHROVITE TAB) PO SCH (11:13)
[2018-05-06] MEDS: FUROSEMIDE 40 MG TAB PO SCH (11:16)
[2018-05-06] MEDS: OCUVITE TABLET PO SCH (11:19)
[2018-05-06] MEDS ORDERED: SODIUM FERR GLUC 62.5MG/5ML 125 MG in SODIUM CHL 0.9% 100 ML IV ONE (11:30)
[2018-05-06] MEDS ORDERED: LACTULOSE 20Gm/30ML SOLN PO ONE (11:30)
[2018-05-06 12:58] VITALS: BP 132/72
[2018-05-06] MEDS: HYDROcodone-ACET 10/325MG TAB PO PRN (16:24)
[2018-05-06] MEDS ORDERED: MORPHINE SULF(PF) 0.5MG/ML 10ML VIAL IV PRN (16:30)
[2018-05-06 17:00] VITALS: BP 129/72
[2018-05-06] MEDS: TAMSULOSIN HYDROCHLORIDE 0.4 MG CAP PO SCH (17:50)
[2018-05-06 22:06] VITALS: BP 121/53
[2018-05-06] MEDS: ATORVASTATIN 20 MG TAB PO SCH (22:18)
[2018-05-06] MEDS: LACTULOSE 20Gm/30ML SOLN PO SCH (22:21)
[2018-05-07] MEDS: ALBUTEROL SULF 2.5 MG/0.5ML(0.5%) NEB SOLN NEB SCH ×3 (00:38→11:39)
[2018-05-07] MEDS: HYDROcodone-ACET 10/325MG TAB PO PRN (04:36)
[2018-05-07 04:48] VITALS: BP 123/55
[2018-05-07 06:18] LABS: Hemoglobin 8.2 g/dL (13.5-17.5)
[2018-05-07 06:22] LABS: Hematocrit 26.1 % (41.0-53.0)
[2018-05-07] MEDS: ACCU-CHEK COMFORT CURVE STRIP VI SCH ×2 (06:25→11:55)
[2018-05-07] MEDS: InsuLIN REG 1unit/0.01ml Soln (100units/ml) SC SCH ×2 (06:32→12:00)
[2018-05-07] MEDS: Boost Glucose Control 8 Ounces PO SCH ×2 (08:00→12:00)
[2018-05-07 08:46] VITALS: BP 125/54
[2018-05-07] MEDS ORDERED: FER325T PO (10:49)
[2018-05-07] MEDS ORDERED: LACT10SO3 PO (10:49)
[2018-05-07] MEDS: PANTOPRAZOLE 40 MG TAB PO SCH (11:49)
[2018-05-07] MEDS: B-COMPLEX W/ C & FOLIC ACID(NEPHROVITE TAB) PO SCH (11:49)
[2018-05-07] MEDS: CITALOPRAM HYDROBR 20 MG TAB PO SCH (11:49)
[2018-05-07] MEDS: CHOLECALCIFEROL (VITD3) 1,000 UNIT TAB PO SCH (11:50)
[2018-05-07] MEDS: POTASSIUM CHL 20 Meq TABLET PO SCH (11:51)
[2018-05-07] MEDS: MEMANTINE HCL 5 MG TAB PO SCH (11:51)
[2018-05-07] MEDS: FAMOTIDINE 20 MG TAB PO SCH (11:51)
[2018-05-07] MEDS: MAGNESIUM OXIDE 400 MG TAB PO SCH (11:51)
[2018-05-07] MEDS: MULTIPLE VITAMIN TAB PO SCH (11:51)
[2018-05-07] MEDS: FUROSEMIDE 40 MG TAB PO SCH (11:53)
[2018-05-07] MEDS: LACTULOSE 20Gm/30ML SOLN PO SCH (11:54)
[2018-05-07] MEDS: OCUVITE TABLET PO SCH (11:54)
[2018-05-07] MEDS ORDERED: SODIUM FERR GLUC 62.5MG/5ML 125 MG in SODIUM CHL 0.9% 100 ML IV SCH (12:00)
[2018-05-07 12:45] VITALS: BP 108/73
[2018-05-07 13:35] VITALS: BP 108/73
== END 2018-05-07 15:30 | disposition home health service (06) | DRG 394 ==
LOC: ER 10:30 → EDBD 10:30 → TELE 10:31 → MERGE 10:31 → TELE-EAST 17:48
PROVIDERS: ADMIT Internal Medicine; ATTEND Internal Medicine
PROC: 5A09357 Assistance with Respiratory Ventilation, Less than 24 Consecutive Hours, Continuous Positive Airway Pressure (ICD-10-PCS; principal; 2018-05-05)
DX: K64.9 Unspecified hemorrhoids (principal); I48.92 Unspecified atrial flutter; E44.1 Mild protein-calorie malnutrition; I13.0 Hypertensive heart and chronic kidney disease with heart failure and stage 1 through stage 4 chronic kidney disease, or unspecified chronic kidney disease; J96.11 Chronic respiratory failure with hypoxia; I69.354 Hemiplegia and hemiparesis following cerebral infarction affecting left non-dominant side; I50.42 Chronic combined systolic (congestive) and diastolic (congestive) heart failure; J44.1 Chronic obstructive pulmonary disease with (acute) exacerbation; D63.8 Anemia in other chronic diseases classified elsewhere; N18.2 Chronic kidney disease, stage 2 (mild); E83.51 Hypocalcemia; E11.21 Type 2 diabetes mellitus with diabetic nephropathy; E11.22 Type 2 diabetes mellitus with diabetic chronic kidney disease; E66.9 Obesity, unspecified; F03.90 Unspecified dementia, unspecified severity, without behavioral disturbance, psychotic disturbance, mood disturbance, and anxiety; G47.30 Sleep apnea, unspecified; I48.2 Chronic atrial fibrillation; I70.0 Atherosclerosis of aorta; I71.4 Abdominal aortic aneurysm, without rupture; K57.30 Diverticulosis of large intestine without perforation or abscess without bleeding; K59.00 Constipation, unspecified; M85.88 Other specified disorders of bone density and structure, other site; K80.20 Calculus of gallbladder without cholecystitis without obstruction; Z95.5 Presence of coronary angioplasty implant and graft; Z99.81 Dependence on supplemental oxygen; M10.9 Gout, unspecified; N40.0 Benign prostatic hyperplasia without lower urinary tract symptoms; F41.9 Anxiety disorder, unspecified; M19.90 Unspecified osteoarthritis, unspecified site; E78.5 Hyperlipidemia, unspecified; Z88.2 Allergy status to sulfonamides; Z79.899 Other long term (current) drug therapy; Z79.82 Long term (current) use of aspirin; Z68.32 Body mass index [BMI] 32.0-32.9, adult
CPT/HCPCS: 36415; 71045; 74176; 80053; 81001; 82150; 82270; 82962; 83036; 83690; 83735; 84484; 85014; 85018; 85025; 86850; 86900; 86901; 93005; 94640; 94660; 94761; 96361; 96374; 97110; 97530; C9113; J1815

== ENCOUNTER 2018-10-13 13:49 | Inpatient (IN) | payer MEDICARE, MEDICAID ==
[~2018-10-13] VITALS: Ht 180.3 cm; Wt 99.1 kg
[2018-10-13] VITALS (9 sets, daily range): BP systolic 103–151; BP diastolic 68–97
[~2018-10-13 13:49] MED LIST changes: -ASPI-498 OR; +ASPI1TAB19 PO; -ASPI81TA13 PO; +FER325T PO; -HYDR-4683 PO; +LACT10SO3 PO
[2018-10-13 14:28] LABS: Basophils # (auto) 0 uL; Basophils % (auto) 0.4 % (0.0-2.0); Monocytes # (auto) 0.4 uL; Neutrophils # (auto) 6.8 uL; Red Blood Cells 2.63 10^6/uL (4.5-5.90)
[2018-10-13 14:30] LABS: Eosinophils # (auto) 0 uL; Eosinophils % (auto) 0.5 % (0.0-7.0); Hematocrit 20.8 % (41.0-53.0); Lymphocytes # (auto) 1.5 uL; Lymphocytes % (auto) 16.9 % (10.0-50.0); Mean Corpuscular Hemoglobin 23.9 pg (28.0-32.0); Mean Corpuscular Hgb Conc. 30.3 g/dL (32.0-36.0); Monocytes % (auto) 4.4 % (0.0-12.0); Neutrophils % (auto) 77.8 % (37.0-80.0); Nucleated Red Blood Cells % 0.1 %; Platelet Count (auto) 200 10^3/uL (140-450); White Blood Cell 8.7 10^3/uL (4.4-10.8)
[2018-10-13] MEDS ORDERED: methylPREDNISolone SOD SUCC 125 MG/2 ML VL IV ONE ×2 (14:30)
[2018-10-13] MEDS ORDERED: ALBUTEROL SULF 2.5 MG/0.5ML(0.5%) NEB SOLN HHN ONE (14:30)
[2018-10-13] MEDS ORDERED: IPRATROPIUM BROM 0.5 MG/2.5ML INH SOL HHN ONE (14:30)
[2018-10-13] MEDS ORDERED: IPRATROPIUM BROM 0.5 MG/2.5ML INH SOL NEB ONE (14:30)
[2018-10-13] MEDS ORDERED: ALBUTEROL SULF 2.5 MG/0.5ML(0.5%) NEB SOLN NEB ONE (14:30)
[2018-10-13 14:35] LABS: Albumin 3.1 g/dL (3.4-5.0); BUN/Creatinine Ratio 18.3; Calcium 7.8 mg/dL (8.5-10.1); Magnesium 2.5 mg/dL (1.6-2.6); Potassium 4.8 mmol/L (3.5-5.1)
[2018-10-13 14:36] LABS: Hemoglobin 6.3 g/dL (13.5-17.5); Red Cell Distribution Width 20.8 % (11.8-14.3)
[2018-10-13 14:40] LABS: Bilirubin, Total 0.2 mg/dL (0.2-1.0); Total Protein 7.1 g/dL (6.4-8.2)
[2018-10-13 15:23] LABS: Lactic Acid w/Reflex 3.2 mmol/L (0.4-2.0)
[2018-10-13] MEDS ORDERED: ACETAMINOPHEN 325 MG TAB PO ONE (15:30)
[2018-10-13] MEDS ORDERED: cefTRIAXone 1GM/50ML D5W 50 ML IV ONE (16:00)
[2018-10-13] MEDS ORDERED: DEXTROSE (50%) 50ML SYRG IV PRN (17:00)
[2018-10-13] MEDS ORDERED: AZITHROMYCIN 500MG/ 250ML 250 ML IV ONE (17:00)
[2018-10-13] MEDS ORDERED: InsuLIN REG 1unit/0.01ml Soln (100units/ml) SC SCH ×2 (17:00→22:00)
[2018-10-13] MEDS ORDERED: LORazepam 0.5 MG TAB PO PRN (17:00)
[2018-10-13] MEDS ORDERED: ACETAMINOPHEN 325 MG TAB PO PRN (17:15)
[2018-10-13] MEDS ORDERED: DOCUSATE SOD 100 MG CAP PO PRN (17:15)
[2018-10-13] MEDS ORDERED: NITROGLYCERIN 0.4 MG SL TAB SL PRN (17:15)
[2018-10-13] MEDS ORDERED: ONDANSETRON HCL 4 MG/2 ML VIAL IV PRN (17:15)
[2018-10-13] MEDS ORDERED: TEMAZEPAM 15 MG CAP PO PRN (17:15)
[2018-10-13] MEDS ORDERED: MORPHINE SULFATE 4 MG/ML SYR/VIAL IV PRN ×2 (17:15)
[2018-10-13] MEDS ORDERED: TAMSULOSIN HYDROCHLORIDE 0.4 MG CAP PO SCH (18:00)
[2018-10-13] MEDS: ACCU-CHEK COMFORT CURVE STRIP VI SCH ×3 (18:32→23:24)
[2018-10-13] MEDS: Glucerna Carbsteady SHAKE Vanilla 8oz PO SCH (18:45)
[2018-10-13] MEDS: TAMSULOSIN HYDROCHLORIDE 0.4 MG CAP PO SCH (18:45)
[2018-10-13] MEDS: IPRATROPIUM BROM 0.5 MG/2.5ML INH SOL NEB SCH (19:34)
[2018-10-13] MEDS: ALBUTEROL SULF 2.5 MG/0.5ML(0.5%) NEB SOLN NEB SCH (19:34)
[2018-10-13] MEDS: [UNRECOGNIZED DRUG - OTHER] PO SCH (22:00)
[2018-10-13] MEDS: SODIUM CHLOR 0.9% PF (SALINE LOCK) 10ML VIAL/SYR IV SCH (22:25)
[2018-10-13] MEDS: methylPREDNISolone SOD SUCC 40 MG/ML VL IV SCH (22:49)
[2018-10-13] MEDS: ASPirin-EC 81 mg tab PO SCH (22:49)
[2018-10-13] MEDS: ATORVASTATIN 20 MG TAB PO SCH (22:49)
[2018-10-13] MEDS: FAMOTIDINE 20 MG TAB PO SCH (22:49)
[2018-10-13] MEDS: CITALOPRAM HYDROBR 20 MG TAB PO SCH (22:50)
[2018-10-13] MEDS: CARVEDILOL 3.125 MG TAB PO SCH (22:50)
[2018-10-13] MEDS: DICLOFENAC 50MG PO SCH (22:51)
[2018-10-13] MEDS: RIVAROXABAN 10 MG TAB PO SCH (22:51)
[2018-10-13 23:17] LABS: Lactic Acid w/Reflex 2.7 mmol/L (0.4-2.0)
[2018-10-13] MEDS: InsuLIN REG 1unit/0.01ml Soln (100units/ml) SC SCH (23:24)
[2018-10-13] MEDS: HYDROcodone-ACET 5/325MG TAB PO PRN (23:25)
[2018-10-14] VITALS (8 sets, daily range): BP systolic 126–169; BP diastolic 67–100
[2018-10-14] MEDS: IPRATROPIUM BROM 0.5 MG/2.5ML INH SOL NEB SCH ×4 (00:42→19:50)
[2018-10-14] MEDS: ALBUTEROL SULF 2.5 MG/0.5ML(0.5%) NEB SOLN NEB SCH ×4 (00:42→19:50)
[2018-10-14 01:00] LABS: Urine Bacteria NONE SEEN /hpf (None Seen); Urine Blood Negative /uL (Negative); Urine Specific Gravity 1.025 (1.001-1.035); Urine WBC <1 /hpf (0 - 3)
[2018-10-14] MEDS ORDERED: CITA10TA70 PO (03:11)
[2018-10-14] MEDS: ACCU-CHEK COMFORT CURVE STRIP VI SCH ×5 (04:19→21:44)
[2018-10-14 04:36] LABS: Basophils # (auto) 0 uL; Basophils % (auto) 0.1 % (0.0-2.0); Eosinophils # (auto) 0 uL; Hematocrit 26.8 % (41.0-53.0); Hemoglobin 8.5 g/dL (13.5-17.5); Lymphocytes # (auto) 0.3 uL; Lymphocytes % (auto) 4.5 % (10.0-50.0); Mean Corpuscular Hemoglobin 25.8 pg (28.0-32.0); Mean Corpuscular Hgb Conc. 31.8 g/dL (32.0-36.0); Mean Corpuscular Volume 81.4 fL (80.0-100.0); Monocytes # (auto) 0.3 uL; Monocytes % (auto) 4.2 % (0.0-12.0); Neutrophils # (auto) 6.5 uL; Neutrophils % (auto) 91.2 % (37.0-80.0); Nucleated Red Blood Cells % 0.3 %; Platelet Count (auto) 186 10^3/uL (140-450); Red Cell Distribution Width 20.8 % (11.8-14.3); White Blood Cell 7.1 10^3/uL (4.4-10.8)
[2018-10-14 04:53] LABS: Albumin 3.2 g/dL (3.4-5.0); BUN/Creatinine Ratio 22.1; Potassium 4.9 mmol/L (3.5-5.1)
[2018-10-14 04:56] LABS: Bilirubin, Total 0.5 mg/dL (0.2-1.0); Total Protein 7.2 g/dL (6.4-8.2)
[2018-10-14] MEDS: SODIUM CHLOR 0.9% PF (SALINE LOCK) 10ML VIAL/SYR IV SCH ×3 (05:10→21:51)
[2018-10-14] MEDS: InsuLIN REG 1unit/0.01ml Soln (100units/ml) SC SCH ×5 (05:10→21:44)
[2018-10-14] MEDS: methylPREDNISolone SOD SUCC 40 MG/ML VL IV SCH ×3 (05:29→21:43)
[2018-10-14] MEDS: DICLOFENAC 50MG PO SCH ×3 (05:29→21:46)
[2018-10-14] MEDS: Glucerna Carbsteady SHAKE Vanilla 8oz PO SCH ×3 (08:00→17:43)
[2018-10-14] MEDS ORDERED: CITALOPRAM HYDROBR 20 MG TAB PO SCH (10:00)
[2018-10-14] MEDS: [UNRECOGNIZED DRUG - OTHER] PO SCH ×2 (10:00→21:46)
[2018-10-14] MEDS: cefTRIAXone 1GM/50ML D5W 50 ML IV SCH (11:00)
[2018-10-14] MEDS: FAMOTIDINE 20 MG TAB PO SCH ×2 (11:00→21:43)
[2018-10-14] MEDS: POTASSIUM CHL 20 Meq TABLET PO SCH (11:01)
[2018-10-14] MEDS: MULTIPLE VITAMIN TAB PO SCH (11:01)
[2018-10-14] MEDS: CITALOPRAM HYDROBR 20 MG TAB PO SCH (11:02)
[2018-10-14] MEDS: FUROSEMIDE 40 MG TAB PO SCH (11:03)
[2018-10-14] MEDS: MEMANTINE HCL 5 MG TAB PO SCH (11:03)
[2018-10-14] MEDS: CARVEDILOL 3.125 MG TAB PO SCH ×2 (11:05→21:43)
[2018-10-14] MEDS: HYDROcodone-ACET 5/325MG TAB PO PRN ×3 (11:09→21:45)
[2018-10-14] MEDS: AZITHROMYCIN 500MG/ 250ML 250 ML IV SCH (12:27)
[2018-10-14] MEDS ORDERED: RIVA10TA PO (12:40)
[2018-10-14 14:31] LABS: INR 1.17 (0.9-1.15); Partial Thromboplastin Time 26.9 sec (23.78-33.04); Prothrombin Time 12.4 sec (9.27-12.13)
[2018-10-14] MEDS: TAMSULOSIN HYDROCHLORIDE 0.4 MG CAP PO SCH (17:43)
[2018-10-14] MEDS: ATORVASTATIN 20 MG TAB PO SCH (21:42)
[2018-10-14] MEDS: ASPirin-EC 81 mg tab PO SCH (21:42)
[2018-10-14] MEDS: RIVAROXABAN 10 MG TAB PO SCH (21:43)
[2018-10-15] MEDS: ALBUTEROL SULF 2.5 MG/0.5ML(0.5%) NEB SOLN NEB SCH ×4 (00:11→19:00)
[2018-10-15] MEDS: IPRATROPIUM BROM 0.5 MG/2.5ML INH SOL NEB SCH ×4 (00:12→19:00)
[2018-10-15] MEDS: ACCU-CHEK COMFORT CURVE STRIP VI SCH ×6 (00:43→21:16)
[2018-10-15] MEDS: InsuLIN REG 1unit/0.01ml Soln (100units/ml) SC SCH ×6 (00:55→21:17)
[2018-10-15 05:02] VITALS: BP 137/69
[2018-10-15] MEDS: SODIUM CHLOR 0.9% PF (SALINE LOCK) 10ML VIAL/SYR IV SCH ×3 (06:00→21:21)
[2018-10-15] MEDS: DICLOFENAC 50MG PO SCH ×3 (06:00→21:32)
[2018-10-15] MEDS: methylPREDNISolone SOD SUCC 40 MG/ML VL IV SCH ×3 (06:00→21:21)
[2018-10-15] MEDS: Glucerna Carbsteady SHAKE Vanilla 8oz PO SCH ×3 (08:19→18:21)
[2018-10-15] MEDS: cefTRIAXone 1GM/50ML D5W 50 ML IV SCH (08:19)
[2018-10-15] MEDS: HYDROcodone-ACET 5/325MG TAB PO PRN ×2 (08:26→21:19)
[2018-10-15 08:54] VITALS: BP 132/70
[2018-10-15] MEDS: [UNRECOGNIZED DRUG - OTHER] PO SCH ×2 (10:00→21:32)
[2018-10-15] MEDS: AZITHROMYCIN 500MG/ 250ML 250 ML IV SCH (10:17)
[2018-10-15] MEDS: POTASSIUM CHL 20 Meq TABLET PO SCH (10:20)
[2018-10-15] MEDS: FUROSEMIDE 40 MG TAB PO SCH (10:20)
[2018-10-15] MEDS: CARVEDILOL 3.125 MG TAB PO SCH ×2 (10:21→21:19)
[2018-10-15] MEDS: MULTIPLE VITAMIN TAB PO SCH (10:21)
[2018-10-15] MEDS: FAMOTIDINE 20 MG TAB PO SCH ×2 (10:21→21:18)
[2018-10-15] MEDS: MEMANTINE HCL 5 MG TAB PO SCH (10:22)
[2018-10-15 12:31] VITALS: BP 136/76
[2018-10-15 16:48] VITALS: BP 132/79
[2018-10-15] MEDS: TAMSULOSIN HYDROCHLORIDE 0.4 MG CAP PO SCH (18:21)
[2018-10-15] MEDS: ATORVASTATIN 20 MG TAB PO SCH (21:18)
[2018-10-15] MEDS: ASPirin-EC 81 mg tab PO SCH (21:18)
[2018-10-15] MEDS: CITALOPRAM HYDROBR 20 MG TAB PO SCH (21:21)
[2018-10-15] MEDS: RIVAROXABAN 10 MG TAB PO SCH (21:33)
[2018-10-15 22:00] VITALS: BP 134/92
[2018-10-15 23:40] VITALS: BP 134/92
[2018-10-16] MEDS: IPRATROPIUM BROM 0.5 MG/2.5ML INH SOL NEB SCH ×4 (00:36→19:09)
[2018-10-16] MEDS: ALBUTEROL SULF 2.5 MG/0.5ML(0.5%) NEB SOLN NEB SCH ×4 (00:36→19:09)
[2018-10-16] MEDS: InsuLIN REG 1unit/0.01ml Soln (100units/ml) SC SCH ×6 (04:17→20:53)
[2018-10-16] MEDS: ACCU-CHEK COMFORT CURVE STRIP VI SCH ×6 (04:17→20:00)
[2018-10-16 05:00] VITALS: BP 129/73
[2018-10-16] MEDS: methylPREDNISolone SOD SUCC 40 MG/ML VL IV SCH ×3 (05:20→22:45)
[2018-10-16] MEDS: SODIUM CHLOR 0.9% PF (SALINE LOCK) 10ML VIAL/SYR IV SCH ×3 (05:21→22:45)
[2018-10-16] MEDS: DICLOFENAC 50MG PO SCH ×3 (05:21→22:00)
[2018-10-16] MEDS: HYDROcodone-ACET 5/325MG TAB PO PRN ×4 (05:30→22:57)
[2018-10-16 06:38] LABS: Basophils # (auto) 0 uL; Basophils % (auto) 0.1 % (0.0-2.0); Eosinophils # (auto) 0 uL; Lymphocytes # (auto) 1.1 uL; Neutrophils # (auto) 7.4 uL; Nucleated Red Blood Cells % 0.4 %; White Blood Cell 8.8 10^3/uL (4.4-10.8)
[2018-10-16 06:40] LABS: Hematocrit 27.3 % (41.0-53.0); Hemoglobin 8.8 g/dL (13.5-17.5); Lymphocytes % (auto) 12.3 % (10.0-50.0); Mean Corpuscular Hemoglobin 25.8 pg (28.0-32.0); Mean Corpuscular Hgb Conc. 32.4 g/dL (32.0-36.0); Mean Corpuscular Volume 79.7 fL (80.0-100.0); Monocytes # (auto) 0.3 uL; Monocytes % (auto) 3.6 % (0.0-12.0); Platelet Count (auto) 179 10^3/uL (140-450); Red Blood Cells 3.43 10^6/uL (4.5-5.90)
[2018-10-16 06:46] LABS: Red Cell Distribution Width 21.7 % (11.8-14.3)
[2018-10-16] MEDS: Glucerna Carbsteady SHAKE Vanilla 8oz PO SCH ×3 (07:54→18:02)
[2018-10-16] MEDS: cefTRIAXone 1GM/50ML D5W 50 ML IV SCH (08:48)
[2018-10-16 09:00] VITALS: BP 148/73
[2018-10-16] MEDS: [UNRECOGNIZED DRUG - OTHER] PO SCH ×2 (10:00→22:00)
[2018-10-16] MEDS: CARVEDILOL 3.125 MG TAB PO SCH ×2 (10:14→22:46)
[2018-10-16] MEDS: AZITHROMYCIN 500MG/ 250ML 250 ML IV SCH (10:14)
[2018-10-16] MEDS: FAMOTIDINE 20 MG TAB PO SCH ×2 (10:15→22:47)
[2018-10-16] MEDS: MULTIPLE VITAMIN TAB PO SCH (10:15)
[2018-10-16] MEDS: POTASSIUM CHL 20 Meq TABLET PO SCH (10:15)
[2018-10-16] MEDS: MEMANTINE HCL 5 MG TAB PO SCH (10:16)
[2018-10-16] MEDS: FUROSEMIDE 40 MG TAB PO SCH (10:16)
[2018-10-16 13:00] VITALS: BP 146/70
[2018-10-16 17:00] VITALS: BP 145/65
[2018-10-16] MEDS: TAMSULOSIN HYDROCHLORIDE 0.4 MG CAP PO SCH (18:02)
[2018-10-16 22:00] VITALS: BP 144/78
[2018-10-16] MEDS: ASPirin-EC 81 mg tab PO SCH (22:45)
[2018-10-16] MEDS: ATORVASTATIN 20 MG TAB PO SCH (22:45)
[2018-10-16] MEDS: CITALOPRAM HYDROBR 20 MG TAB PO SCH (22:46)
[2018-10-16] MEDS: RIVAROXABAN 10 MG TAB PO SCH (22:57)
[2018-10-17] MEDS: IPRATROPIUM BROM 0.5 MG/2.5ML INH SOL NEB SCH ×2 (00:35→06:37)
[2018-10-17] MEDS: ALBUTEROL SULF 2.5 MG/0.5ML(0.5%) NEB SOLN NEB SCH ×2 (00:36→06:37)
[2018-10-17] MEDS: ACCU-CHEK COMFORT CURVE STRIP VI SCH ×3 (04:00→08:05)
[2018-10-17] MEDS: InsuLIN REG 1unit/0.01ml Soln (100units/ml) SC SCH ×3 (04:53→08:06)
[2018-10-17 05:15] VITALS: BP 141/77
[2018-10-17] MEDS: DICLOFENAC 50MG PO SCH (06:00)
[2018-10-17] MEDS: methylPREDNISolone SOD SUCC 40 MG/ML VL IV SCH (06:30)
[2018-10-17] MEDS: SODIUM CHLOR 0.9% PF (SALINE LOCK) 10ML VIAL/SYR IV SCH (06:30)
[2018-10-17] MEDS: Glucerna Carbsteady SHAKE Vanilla 8oz PO SCH (08:05)
[2018-10-17] MEDS: cefTRIAXone 1GM/50ML D5W 50 ML IV SCH (08:07)
[2018-10-17 08:40] VITALS: BP 167/85
[2018-10-17] MEDS: HYDROcodone-ACET 5/325MG TAB PO PRN (08:59)
[2018-10-17] MEDS: MULTIPLE VITAMIN TAB PO SCH (09:15)
[2018-10-17] MEDS: AZITHROMYCIN 500MG/ 250ML 250 ML IV SCH (09:15)
[2018-10-17] MEDS: FAMOTIDINE 20 MG TAB PO SCH (09:15)
[2018-10-17] MEDS: FUROSEMIDE 40 MG TAB PO SCH (09:15)
[2018-10-17] MEDS: POTASSIUM CHL 20 Meq TABLET PO SCH (09:16)
[2018-10-17] MEDS: MEMANTINE HCL 5 MG TAB PO SCH (09:16)
[2018-10-17] MEDS: CARVEDILOL 3.125 MG TAB PO SCH (09:16)
[2018-10-17 10:06] VITALS: BP 167/85
== END 2018-10-17 11:09 | disposition home health service (06) | DRG 871 ==
LOC: EDBD 13:49 → ER 13:51 → TELE 17:51 → TELE-WESTW 20:35
PROVIDERS: ADMIT Internal Medicine; ATTEND Family Medicine
PROC: 30233N1 Transfusion of Nonautologous Red Blood Cells into Peripheral Vein, Percutaneous Approach (ICD-10-PCS; principal; 2018-10-13)
PROC: 5A09357 Assistance with Respiratory Ventilation, Less than 24 Consecutive Hours, Continuous Positive Airway Pressure (ICD-10-PCS; 2018-10-13)
PROC: 5A09357 Assistance with Respiratory Ventilation, Less than 24 Consecutive Hours, Continuous Positive Airway Pressure (ICD-10-PCS; 2018-10-14)
PROC: 5A09357 Assistance with Respiratory Ventilation, Less than 24 Consecutive Hours, Continuous Positive Airway Pressure (ICD-10-PCS; 2018-10-15)
PROC: 5A09357 Assistance with Respiratory Ventilation, Less than 24 Consecutive Hours, Continuous Positive Airway Pressure (ICD-10-PCS; 2018-10-16)
PROC: 5A09357 Assistance with Respiratory Ventilation, Less than 24 Consecutive Hours, Continuous Positive Airway Pressure (ICD-10-PCS; 2018-10-17)
DX: A41.9 Sepsis, unspecified organism (principal); J69.0 Pneumonitis due to inhalation of food and vomit; I50.43 Acute on chronic combined systolic (congestive) and diastolic (congestive) heart failure; J96.00 Acute respiratory failure, unspecified whether with hypoxia or hypercapnia; E44.0 Moderate protein-calorie malnutrition; I13.0 Hypertensive heart and chronic kidney disease with heart failure and stage 1 through stage 4 chronic kidney disease, or unspecified chronic kidney disease; I48.92 Unspecified atrial flutter; J44.0 Chronic obstructive pulmonary disease with (acute) lower respiratory infection; J44.1 Chronic obstructive pulmonary disease with (acute) exacerbation; J45.901 Unspecified asthma with (acute) exacerbation; I69.354 Hemiplegia and hemiparesis following cerebral infarction affecting left non-dominant side; D64.9 Anemia, unspecified; N18.3 Chronic kidney disease, stage 3 (moderate); E11.22 Type 2 diabetes mellitus with diabetic chronic kidney disease; E11.65 Type 2 diabetes mellitus with hyperglycemia; E11.21 Type 2 diabetes mellitus with diabetic nephropathy; E78.00 Pure hypercholesterolemia, unspecified; B95.62 Methicillin resistant Staphylococcus aureus infection as the cause of diseases classified elsewhere; E78.5 Hyperlipidemia, unspecified; E83.51 Hypocalcemia; F32.9 Major depressive disorder, single episode, unspecified; I48.91 Unspecified atrial fibrillation; Z74.01 Bed confinement status; Z82.49 Family history of ischemic heart disease and other diseases of the circulatory system; Z95.0 Presence of cardiac pacemaker; Z99.81 Dependence on supplemental oxygen; Z88.2 Allergy status to sulfonamides; Z68.30 Body mass index [BMI] 30.0-30.9, adult
CPT/HCPCS: 36415; 71046; 71250; 73560; 80053; 81001; 82962; 83036; 83540; 83605; 83735; 83880; 84484; 85025; 85610; 85730; 86850; 86900; 86901; 86920; 87040; 87076; 87077; 87081; 87086; 93005; 93306; 94640; 94660; 96365; 96367; 96375; 97110; 97530; G0378; J0696; J1815; J2405

== ENCOUNTER → 2018-11-04 | Outpatient (CLI) | payer MEDICARE, MEDICAID ==
[~2018-11-04] MED LIST changes: -CAR3125T NG; +CITA10TA70 PO; -FURO20TA3 PO; -LISI-275 PO; -LISI2.5T47 PO; -MEM5T PO; -POTA10TA51 PO; -RIV20T PO; +RIVA10TA PO; -SIMV-8 PO; -TAMS0.4C36 PO
[2018-11-04 11:07] LABS: Eosinophils # (auto) 0 uL; Eosinophils % (auto) 0.5 % (0.0-7.0); Hemoglobin 7.8 g/dL (13.5-17.5); Monocytes # (auto) 0.5 uL; Monocytes % (auto) 6.7 % (0.0-12.0); White Blood Cell 7.5 10^3/uL (4.4-10.8)
[2018-11-04 11:08] LABS: Basophils # (auto) 0.1 uL; Basophils % (auto) 0.8 % (0.0-2.0); Hematocrit 25.6 % (41.0-53.0); Lymphocytes # (auto) 1.1 uL; Lymphocytes % (auto) 14.6 % (10.0-50.0); Mean Corpuscular Hemoglobin 26.3 pg (28.0-32.0); Mean Corpuscular Hgb Conc. 30.4 g/dL (32.0-36.0); Mean Corpuscular Volume 86.6 fL (80.0-100.0); Neutrophils # (auto) 5.8 uL; Neutrophils % (auto) 77.4 % (37.0-80.0); Platelet Count (auto) 245 10^3/uL (140-450); Red Blood Cells 2.95 10^6/uL (4.5-5.90)
[2018-11-04 11:13] LABS: Red Cell Distribution Width 27.6 % (11.8-14.3)
[2018-11-04 11:40] LABS: Potassium 4.4 mmol/L (3.5-5.1)
[2018-11-04 11:47] LABS: Albumin 3.1 g/dL (3.4-5.0); BUN/Creatinine Ratio 21.7; Bilirubin, Total 0.3 mg/dL (0.2-1.0); Calcium 8.1 mg/dL (8.5-10.1); Total Protein 6.2 g/dL (6.4-8.2)
== END | disposition home or self-care (01) ==
LOC: LAB 10:22
PROVIDERS: ATTEND Nurse Practitioner
DX: E78.5 Hyperlipidemia, unspecified (principal)
CPT/HCPCS: 36415; 80053; 85025

== ENCOUNTER 2018-11-08 10:26 | Inpatient (IN) | payer MEDICARE, MEDICAID ==
[~2018-11-08] VITALS: Ht 165.1 cm; Wt 95.8 kg
[2018-11-08] MEDS ORDERED: SODIUM CHLORIDE 0.9% 1,000 ML IV ONE (10:29)
[2018-11-08] MEDS ORDERED: cefTRIAXone 1GM/50ML D5W 50 ML IV ONE (10:30)
[2018-11-08 10:53] LABS: Basophils # (auto) 0 uL; Eosinophils # (auto) 0 uL; Monocytes # (auto) 0.5 uL; Red Blood Cells 2.67 10^6/uL (4.5-5.90)
[2018-11-08 10:55] LABS: Basophils % (auto) 0.6 % (0.0-2.0); Eosinophils % (auto) 0.2 % (0.0-7.0); Hematocrit 23.5 % (41.0-53.0); Hemoglobin 7.1 g/dL (13.5-17.5); Lymphocytes # (auto) 1.1 uL; Lymphocytes % (auto) 17.5 % (10.0-50.0); Mean Corpuscular Hemoglobin 26.7 pg (28.0-32.0); Mean Corpuscular Hgb Conc. 30.2 g/dL (32.0-36.0); Mean Corpuscular Volume 88.3 fL (80.0-100.0); Monocytes % (auto) 7.2 % (0.0-12.0); Neutrophils # (auto) 4.9 uL; Neutrophils % (auto) 74.5 % (37.0-80.0); Nucleated Red Blood Cells % 0.1 %; Platelet Count (auto) 199 10^3/uL (140-450); White Blood Cell 6.6 10^3/uL (4.4-10.8)
[2018-11-08 10:59] LABS: Red Cell Distribution Width 26.1 % (11.8-14.3)
[2018-11-08 11:16] LABS: Albumin 2.7 g/dL (3.4-5.0); Calcium 7.6 mg/dL (8.5-10.1)
[2018-11-08 11:17] LABS: INR 1.14 (0.9-1.15); Partial Thromboplastin Time 26.7 sec (23.78-33.04); Prothrombin Time 12.1 sec (9.27-12.13)
[2018-11-08] MEDS ORDERED: MULT0.07 PO (11:23)
[2018-11-08] MEDS ORDERED: MULTTAB99 PO (11:23)
[2018-11-08] MEDS ORDERED: CHOL200010 PO (11:23)
[2018-11-08] MEDS ORDERED: FERR1TAB5 PO (11:23)
[2018-11-08] MEDS ORDERED: MAGN400T5 PO (11:23)
[2018-11-08] MEDS ORDERED: ACET-1156 PO (11:23)
[2018-11-08 11:24] LABS: BUN/Creatinine Ratio 19.6; Bilirubin, Total 0.6 mg/dL (0.2-1.0); Total Protein 5.7 g/dL (6.4-8.2)
[2018-11-08] MEDS ORDERED: ALBUTEROL SULF 2.5 MG/0.5ML(0.5%) NEB SOLN NEB PRN (13:30)
[2018-11-08] MEDS ORDERED: NITROGLYCERIN 0.4 MG SL TAB SL PRN (13:30)
[2018-11-08] MEDS ORDERED: PROMETHAZINE HCL 25 MG/ML 1ML IV PRN (13:30)
[2018-11-08] MEDS ORDERED: DEXTROSE (50%) 50ML SYRG IV PRN (13:30)
[2018-11-08] MEDS ORDERED: TEMAZEPAM 15 MG CAP PO PRN (13:30)
[2018-11-08] MEDS ORDERED: LORazepam 0.5 MG TAB PO PRN (13:30)
[2018-11-08] MEDS ORDERED: MORPHINE SULFATE 4 MG/ML SYR/VIAL IV PRN ×2 (13:30)
[2018-11-08 13:35] VITALS: BP 110/58
[2018-11-08 13:45] VITALS: BP 110/53
[2018-11-08] MEDS: SODIUM CHLORIDE 0.9% 1,000 ML IV SCH ×2 (13:57→21:28)
[2018-11-08 14:00] VITALS: BP 111/54
[2018-11-08 14:27] VITALS: BP 111/54
[2018-11-08 14:32] LABS: CRP High Sensitivity 4.36 mg/dL (< 0.3)
[2018-11-08] MEDS: ACETAMINOPHEN 500 MG TAB PO PRN (15:07)
[2018-11-08] MEDS: ACCU-CHEK COMFORT CURVE STRIP VI SCH ×3 (16:03→23:28)
[2018-11-08] MEDS: InsuLIN REG 1unit/0.01ml Soln (100units/ml) SC SCH ×3 (16:03→23:28)
[2018-11-08 16:49] VITALS: BP 91/44
[2018-11-08 18:05] LABS: Hematocrit 24.2 % (41.0-53.0); Hemoglobin 7.5 g/dL (13.5-17.5)
[2018-11-08] MEDS: ALBUTEROL SULF 2.5 MG/0.5ML(0.5%) NEB SOLN NEB SCH (19:00)
[2018-11-08] MEDS: IPRATROPIUM BROM 0.5 MG/2.5ML INH SOL NEB SCH (19:00)
[2018-11-08] MEDS: ATORVASTATIN 20 MG TAB PO SCH (21:26)
[2018-11-08] MEDS: PANTOPRAZOLE 40 MG TAB PO SCH (21:26)
[2018-11-08 21:43] VITALS: BP 114/63
[2018-11-08] MEDS: CEFOTETAN 1GM/D5W 50ML BAG 50 ML IV SCH (22:42)
[2018-11-08] MEDS: HYDROcodone-ACET 5/325MG TAB PO PRN (23:24)
[2018-11-09] VITALS (7 sets, daily range): BP systolic 111–147; BP diastolic 63–76
[2018-11-09 01:06] LABS: Hematocrit 26.5 % (41.0-53.0); Hemoglobin 8.2 g/dL (13.5-17.5)
[2018-11-09] MEDS: ACCU-CHEK COMFORT CURVE STRIP VI SCH ×5 (04:00→20:45)
[2018-11-09] MEDS: InsuLIN REG 1unit/0.01ml Soln (100units/ml) SC SCH ×5 (04:00→20:00)
[2018-11-09] MEDS: SODIUM CHLORIDE 0.9% 1,000 ML IV SCH ×3 (04:48→22:38)
[2018-11-09] MEDS: IPRATROPIUM BROM 0.5 MG/2.5ML INH SOL NEB SCH ×4 (06:16→19:19)
[2018-11-09] MEDS: ALBUTEROL SULF 2.5 MG/0.5ML(0.5%) NEB SOLN NEB SCH ×4 (06:17→19:19)
[2018-11-09 07:32] LABS: Basophils # (auto) 0 uL; Eosinophils # (auto) 0.1 uL; Lymphocytes # (auto) 1.2 uL; Mean Corpuscular Volume 87.2 fL (80.0-100.0); Monocytes # (auto) 0.4 uL; Neutrophils # (auto) 5.3 uL; White Blood Cell 7.1 10^3/uL (4.4-10.8)
[2018-11-09 07:33] LABS: Basophils % (auto) 0.6 % (0.0-2.0); Eosinophils % (auto) 1.2 % (0.0-7.0); Hematocrit 27.5 % (41.0-53.0); Hemoglobin 8.6 g/dL (13.5-17.5); Mean Corpuscular Hemoglobin 27.1 pg (28.0-32.0); Monocytes % (auto) 6.2 % (0.0-12.0); Red Blood Cells 3.16 10^6/uL (4.5-5.90)
[2018-11-09 07:36] LABS: Platelet Count (auto) 195 10^3/uL (140-450); Red Cell Distribution Width 23.1 % (11.8-14.3)
[2018-11-09 07:49] LABS: Albumin 2.7 g/dL (3.4-5.0); BUN/Creatinine Ratio 16.7; Calcium 7.3 mg/dL (8.5-10.1)
[2018-11-09 07:52] LABS: Bilirubin, Total 0.4 mg/dL (0.2-1.0); Total Protein 5.8 g/dL (6.4-8.2)
[2018-11-09] MEDS: HYDROcodone-ACET 5/325MG TAB PO PRN ×2 (08:29→16:09)
[2018-11-09] MEDS ORDERED: MULTIPLE VITAMIN TAB PO SCH (10:00)
[2018-11-09] MEDS: MAGNESIUM OXIDE 400 MG TAB PO SCH (10:06)
[2018-11-09] MEDS: MULTIPLE VITAMINS W/ MINERALS TAB PO SCH (10:07)
[2018-11-09] MEDS: CITALOPRAM HYDROBR 20 MG TAB PO SCH (10:07)
[2018-11-09] MEDS: FERROUS SULFATE 325 MG TAB PO SCH (10:07)
[2018-11-09] MEDS: PANTOPRAZOLE 40 MG TAB PO SCH ×2 (10:07→22:38)
[2018-11-09] MEDS: MEMANTINE HCL 5 MG TAB PO SCH (10:07)
[2018-11-09] MEDS: CEFOTETAN 1GM/D5W 50ML BAG 50 ML IV SCH ×2 (11:57→22:37)
[2018-11-09] MEDS: ATORVASTATIN 20 MG TAB PO SCH (22:38)
[2018-11-10] MEDS: ACCU-CHEK COMFORT CURVE STRIP VI SCH ×7 (00:16→23:50)
[2018-11-10] MEDS: InsuLIN REG 1unit/0.01ml Soln (100units/ml) SC SCH ×7 (04:00→23:50)
[2018-11-10 05:00] VITALS: BP 152/78
[2018-11-10] MEDS: SODIUM CHLORIDE 0.9% 1,000 ML IV SCH ×3 (05:42→23:29)
[2018-11-10] MEDS: ALBUTEROL SULF 2.5 MG/0.5ML(0.5%) NEB SOLN NEB SCH ×4 (06:05→18:22)
[2018-11-10] MEDS: IPRATROPIUM BROM 0.5 MG/2.5ML INH SOL NEB SCH ×4 (06:05→18:22)
[2018-11-10 08:48] VITALS: BP 157/74
[2018-11-10] MEDS: CEFOTETAN 1GM/D5W 50ML BAG 50 ML IV SCH ×2 (10:06→21:18)
[2018-11-10] MEDS: PANTOPRAZOLE 40 MG TAB PO SCH ×2 (10:07→21:18)
[2018-11-10] MEDS: MAGNESIUM OXIDE 400 MG TAB PO SCH (10:07)
[2018-11-10] MEDS: FERROUS SULFATE 325 MG TAB PO SCH (10:07)
[2018-11-10] MEDS: HYDROcodone-ACET 5/325MG TAB PO PRN ×2 (10:07→20:12)
[2018-11-10] MEDS: CITALOPRAM HYDROBR 20 MG TAB PO SCH (10:07)
[2018-11-10] MEDS: MULTIPLE VITAMINS W/ MINERALS TAB PO SCH (10:07)
[2018-11-10] MEDS: MEMANTINE HCL 5 MG TAB PO SCH (10:08)
[2018-11-10 10:42] LABS: Urine Bacteria NONE SEEN /hpf (None Seen); Urine Blood Negative /uL (Negative); Urine WBC 1 /hpf (0 - 3)
[2018-11-10 13:21] VITALS: BP 147/70
[2018-11-10 17:15] VITALS: BP 122/56
[2018-11-10] MEDS: ATORVASTATIN 20 MG TAB PO SCH (21:18)
[2018-11-10 22:00] VITALS: BP 122/62
[2018-11-11] MEDS: IPRATROPIUM BROM 0.5 MG/2.5ML INH SOL NEB SCH ×4 (00:17→18:55)
[2018-11-11] MEDS: ALBUTEROL SULF 2.5 MG/0.5ML(0.5%) NEB SOLN NEB SCH ×4 (00:17→18:55)
[2018-11-11] MEDS: InsuLIN REG 1unit/0.01ml Soln (100units/ml) SC SCH ×5 (04:00→23:48)
[2018-11-11] MEDS: ACCU-CHEK COMFORT CURVE STRIP VI SCH ×5 (04:05→23:49)
[2018-11-11 05:00] VITALS: BP 131/68
[2018-11-11] MEDS: SODIUM CHLORIDE 0.9% 1,000 ML IV SCH ×2 (05:28→14:44)
[2018-11-11 06:16] LABS: Basophils # (auto) 0 uL; Basophils % (auto) 0.7 % (0.0-2.0); Lymphocytes # (auto) 0.9 uL; Monocytes # (auto) 0.3 uL; Nucleated Red Blood Cells % 0.1 %
[2018-11-11 06:21] LABS: Eosinophils # (auto) 0 uL; Eosinophils % (auto) 0.8 % (0.0-7.0); Hematocrit 29.2 % (41.0-53.0); Hemoglobin 9.1 g/dL (13.5-17.5); Lymphocytes % (auto) 23.7 % (10.0-50.0); Mean Corpuscular Hemoglobin 27.6 pg (28.0-32.0); Mean Corpuscular Volume 89.1 fL (80.0-100.0); Monocytes % (auto) 8.1 % (0.0-12.0); Neutrophils # (auto) 2.7 uL; Neutrophils % (auto) 66.7 % (37.0-80.0); Platelet Count (auto) 177 10^3/uL (140-450); Red Blood Cells 3.28 10^6/uL (4.5-5.90)
[2018-11-11 06:44] LABS: Red Cell Distribution Width 23.4 % (11.8-14.3)
[2018-11-11] MEDS: CITALOPRAM HYDROBR 20 MG TAB PO SCH (08:46)
[2018-11-11] MEDS: CEFOTETAN 1GM/D5W 50ML BAG 50 ML IV SCH (08:46)
[2018-11-11] MEDS: FERROUS SULFATE 325 MG TAB PO SCH (08:46)
[2018-11-11] MEDS: PANTOPRAZOLE 40 MG TAB PO SCH ×2 (08:47→21:26)
[2018-11-11] MEDS: MAGNESIUM OXIDE 400 MG TAB PO SCH (08:47)
[2018-11-11] MEDS: MULTIPLE VITAMINS W/ MINERALS TAB PO SCH (08:47)
[2018-11-11] MEDS: MEMANTINE HCL 5 MG TAB PO SCH (08:47)
[2018-11-11 08:55] VITALS: BP 116/65
[2018-11-11] MEDS: HYDROcodone-ACET 5/325MG TAB PO PRN ×2 (09:01→20:32)
[2018-11-11 09:38] LABS: Calcium 7.4 mg/dL (8.5-10.1); Potassium 4.1 mmol/L (3.5-5.1)
[2018-11-11 11:34] VITALS: BP 131/68
[2018-11-11 12:23] VITALS: BP 126/66
[2018-11-11] MEDS ORDERED: DEXTROSE (50%) 50ML SYRG IV PRN (14:15)
[2018-11-11 17:16] VITALS: BP 128/68
[2018-11-11] MEDS: ACETAMINOPHEN 500 MG TAB PO PRN (20:13)
[2018-11-11] MEDS: ATORVASTATIN 20 MG TAB PO SCH (21:25)
[2018-11-11 22:00] VITALS: BP 141/71
[2018-11-12] MEDS: IPRATROPIUM BROM 0.5 MG/2.5ML INH SOL NEB SCH ×3 (00:18→11:39)
[2018-11-12] MEDS: ALBUTEROL SULF 2.5 MG/0.5ML(0.5%) NEB SOLN NEB SCH ×3 (00:18→11:39)
[2018-11-12] MEDS: SODIUM CHLORIDE 0.9% 1,000 ML IV SCH (03:55)
[2018-11-12 05:34] VITALS: BP 135/87
[2018-11-12 05:34] LABS: Hematocrit 29.8 % (41.0-53.0); Hemoglobin 9.4 g/dL (13.5-17.5)
[2018-11-12] MEDS: InsuLIN REG 1unit/0.01ml Soln (100units/ml) SC SCH ×2 (06:00→12:09)
[2018-11-12] MEDS: ACCU-CHEK COMFORT CURVE STRIP VI SCH ×2 (06:10→12:09)
[2018-11-12 09:00] VITALS: BP 121/64
[2018-11-12] MEDS: MULTIPLE VITAMINS W/ MINERALS TAB PO SCH (10:28)
[2018-11-12] MEDS: PANTOPRAZOLE 40 MG TAB PO SCH (10:28)
[2018-11-12] MEDS: MEMANTINE HCL 5 MG TAB PO SCH (10:29)
[2018-11-12] MEDS: MAGNESIUM OXIDE 400 MG TAB PO SCH (10:29)
[2018-11-12] MEDS: CITALOPRAM HYDROBR 20 MG TAB PO SCH (10:29)
[2018-11-12] MEDS: FERROUS SULFATE 325 MG TAB PO SCH (10:29)
[2018-11-12] MEDS: HYDROcodone-ACET 5/325MG TAB PO PRN (10:46)
[2018-11-12 13:00] VITALS: BP 140/61
[2018-11-12 15:29] VITALS: BP 121/64
== END 2018-11-12 16:33 | disposition home health service (06) | DRG 378 ==
LOC: EDBD 10:26 → ER 10:26 → TELE 13:32 → TELE-EAST 14:40
PROVIDERS: ADMIT Internal Medicine; ATTEND Internal Medicine
PROC: 30233N1 Transfusion of Nonautologous Red Blood Cells into Peripheral Vein, Percutaneous Approach (ICD-10-PCS; principal; 2018-11-08)
PROC: 5A09357 Assistance with Respiratory Ventilation, Less than 24 Consecutive Hours, Continuous Positive Airway Pressure (ICD-10-PCS; 2018-11-09)
PROC: 5A09357 Assistance with Respiratory Ventilation, Less than 24 Consecutive Hours, Continuous Positive Airway Pressure (ICD-10-PCS; 2018-11-10)
PROC: 5A09357 Assistance with Respiratory Ventilation, Less than 24 Consecutive Hours, Continuous Positive Airway Pressure (ICD-10-PCS; 2018-11-11)
PROC: 5A09357 Assistance with Respiratory Ventilation, Less than 24 Consecutive Hours, Continuous Positive Airway Pressure (ICD-10-PCS; 2018-11-12)
DX: K57.31 Diverticulosis of large intestine without perforation or abscess with bleeding (principal); E44.1 Mild protein-calorie malnutrition; J96.10 Chronic respiratory failure, unspecified whether with hypoxia or hypercapnia; D62 Acute posthemorrhagic anemia; K55.9 Vascular disorder of intestine, unspecified; D68.59 Other primary thrombophilia; K64.8 Other hemorrhoids; E11.65 Type 2 diabetes mellitus with hyperglycemia; J44.9 Chronic obstructive pulmonary disease, unspecified; I48.91 Unspecified atrial fibrillation; Z86.73 Personal history of transient ischemic attack (TIA), and cerebral infarction without residual deficits; D63.8 Anemia in other chronic diseases classified elsewhere; K80.20 Calculus of gallbladder without cholecystitis without obstruction; I11.0 Hypertensive heart disease with heart failure; E66.9 Obesity, unspecified; M19.90 Unspecified osteoarthritis, unspecified site; M10.9 Gout, unspecified; I50.9 Heart failure, unspecified; E11.9 Type 2 diabetes mellitus without complications; Z96.649 Presence of unspecified artificial hip joint; E78.5 Hyperlipidemia, unspecified; F03.90 Unspecified dementia, unspecified severity, without behavioral disturbance, psychotic disturbance, mood disturbance, and anxiety; G47.30 Sleep apnea, unspecified; I48.2 Chronic atrial fibrillation; I71.4 Abdominal aortic aneurysm, without rupture; K59.00 Constipation, unspecified; Z82.49 Family history of ischemic heart disease and other diseases of the circulatory system; Z83.3 Family history of diabetes mellitus; Z95.0 Presence of cardiac pacemaker; Z99.81 Dependence on supplemental oxygen; Z79.899 Other long term (current) drug therapy; Z88.2 Allergy status to sulfonamides; Z68.35 Body mass index [BMI] 35.0-35.9, adult
CPT/HCPCS: 36415; 36430; 71045; 74176; 80048; 80053; 81001; 82150; 82378; 82962; 83036; 83690; 83735; 83880; 84484; 85014; 85018; 85025; 85045; 85610; 85652; 85730; 86141; 86850; 86900; 86901; 86920; 87081; 87086; 93005; 94640; 94660; 96361; 96365; 97163; G0378; J0696; J1815

== ENCOUNTER 2021-04-12 13:25 | Inpatient (IN) | payer MEDICARE, MEDICAID ==
[~2021-04-12] VITALS: Ht 172.7 cm; Wt 108.4 kg
[~2021-04-12 13:25] MED LIST changes: +ACET-1156 PO; -CARV3.1240 PO; +CHOL200010 PO; -CITA10TA70 PO; -DOXY-216 PO; +DOXY-286 PO; +FERR45TA7 PO; -LACT10SO3 PO; -LORA-654 PO; +LORA0.5T20 PO; +MAGN400T40 PO; +MULT0.07 PO; +MULTTAB99 PO; +POTA-220 PO; -POTA20TA53 PO; +SIMV20TA2 NG; -SIMV20TA90 NG
[2021-04-12] MEDS ORDERED: IPRATROPIUM BROM 0.5 MG/2.5ML INH SOL NEB ONE (14:15)
[2021-04-12] MEDS ORDERED: ALBUTEROL SULF 2.5 MG/0.5ML(0.5%) NEB SOLN NEB ONE (14:15)
[2021-04-12] MEDS ORDERED: cefTRIAXone 1GM/50ML D5W 50 ML IV ONE (14:15)
[2021-04-12] MEDS ORDERED: methylPREDNISolone SOD SUCC 125 MG/2 ML VL IV ONE (14:15)
[2021-04-12 15:29] LABS: Basophils # (auto) 0 10 ^3/uL (0-0.2); Basophils % (auto) 0.1 % (0.0-2.0); Eosinophils # (auto) 0 10 ^3/uL (0-0.8); Eosinophils % (auto) 0.3 % (0.0-7.0); Hematocrit 37.7 % (41.0-53.0); Hemoglobin 12.5 g/dL (13.5-17.5); Lymphocytes # (auto) 1.3 10 ^3/uL (0.4-5.4); Lymphocytes % (auto) 11.3 % (10.0-50.0); Mean Corpuscular Hemoglobin 31.3 pg (28.0-32.0); Mean Corpuscular Volume 94.7 fL (80.0-100.0); Monocytes % (auto) 9.2 % (0.0-12.0); Neutrophils # (auto) 8.8 10 ^3/uL (1.6-8.6); Neutrophils % (auto) 79.1 % (37.0-80.0); Nucleated Red Blood Cells % 0.1 %; Platelet Count (auto) 133 10^3/uL (140-450); Red Blood Cells 3.99 10^6/uL (4.5-5.90); Red Cell Distribution Width 14.7 % (11.8-14.3); White Blood Cell 11.2 10^3/uL (4.4-10.8)
[2021-04-12 15:43] LABS: INR 1.16 (0.9-1.15); Partial Thromboplastin Time 26.1 sec (23.0-31.2)
[2021-04-12 15:47] LABS: Calcium 8.3 mg/dL (8.5-10.1); Chloride 101 mmol/L (98-107); Potassium 4.7 mmol/L (3.5-5.1); Sodium 139 mmol/L (136-145)
[2021-04-12 15:55] LABS: Alanine Aminotransferase 30 U/L (16-61); Albumin 3.2 g/dL (3.4-5.0); Alkaline Phosphatase 74 U/L (45-117); Anion Gap 4 (5-15); Aspartate Aminotransferase 25 U/L (15-37); BUN/Creatinine Ratio 20.6; Bilirubin, Total 0.4 mg/dL (0.2-1.0); Blood Urea Nitrogen 20 mg/dL (7-18); Carbon Dioxide 34 mmol/L (21-32); GFR African American 94 mL/min; GFR Non-African American 78 mL/min; Glucose 237 mg/dL (74-106); Total Protein 6.9 g/dL (6.4-8.2)
[2021-04-12] MEDS ORDERED: FERR325T20 PO (17:48)
[2021-04-12] MEDS ORDERED: CARV3.1240 PO (17:48)
[2021-04-12] MEDS ORDERED: CITA10TA70 PO (17:48)
[2021-04-12] MEDS ORDERED: BACL10TA PO (17:48)
[2021-04-12] MEDS ORDERED: TRAM50TA2 PO (17:48)
[2021-04-12] MEDS ORDERED: MEMA1TAB5 PO (17:48)
[2021-04-12] MEDS ORDERED: potassium (17:48)
[2021-04-12] MEDS ORDERED: TAMS0.4C36 PO (17:48)
[2021-04-12] MEDS ORDERED: SIMV-8 PO (17:48)
[2021-04-12] MEDS ORDERED: NITROGLYCERIN 0.4 MG SL TAB SL PRN (19:30)
[2021-04-12] MEDS ORDERED: ONDANSETRON HCL 4 MG/2 ML VIAL IV PRN (19:30)
[2021-04-12] MEDS ORDERED: MORPHINE SULF INJ 2 MG/ML SYRINGE 1ML IV PRN (19:30)
[2021-04-12] MEDS ORDERED: HYDROcodone-ACET 5/325MG TAB PO PRN (19:30)
[2021-04-12] MEDS ORDERED: ACETAMINOPHEN 500 MG TAB PO PRN (19:30)
[2021-04-12] MEDS ORDERED: DEXTROSE (50%) 50ML SYRG IV PRN (19:45)
[2021-04-12] MEDS: AZITHROMYCIN 500MG/ 250ML 250 ML IV SCH (20:55)
[2021-04-12 23:25] VITALS: BP 168/82
[2021-04-12 23:54] VITALS: BP 143/74
[2021-04-12] MEDS: MORPHINE SULF INJ 2 MG/ML SYRINGE 1ML IV PRN (23:54)
[2021-04-12] MEDS: methylPREDNISolone SOD SUCC 125 MG/2 ML VL IV SCH (23:54)
[2021-04-12] MEDS: TAMSULOSIN HYDROCHLORIDE 0.4 MG CAP PO SCH (23:54)
[2021-04-12] MEDS: ACCU-CHEK COMFORT CURVE STRIP VI SCH (23:55)
[2021-04-13] MEDS: InsuLIN REG 1unit/0.01ml Soln (100units/ml) SC SCH ×5 (00:09→22:17)
[2021-04-13] MEDS: ALBUTEROL SULF 2.5 MG/0.5ML(0.5%) NEB SOLN NEB SCH ×4 (00:22→18:45)
[2021-04-13] MEDS: BUDESONIDE (INHALATION) 0.5 MG/2 ML NEB NEB SCH ×3 (00:22→18:45)
[2021-04-13] MEDS: IPRATROPIUM BROM 0.5 MG/2.5ML INH SOL NEB SCH ×4 (00:22→18:45)
[2021-04-13 02:12] LABS: Urine Bacteria FEW /hpf (None Seen); Urine Blood Negative /uL (Negative); Urine Hyaline Cast FEW /lpf (0 - 2); Urine WBC 5 /hpf (0 - 3)
[2021-04-13 05:00] VITALS: BP 142/90
[2021-04-13 05:36] LABS: Basophils # (auto) 0 10 ^3/uL (0-0.2); Eosinophils # (auto) 0 10 ^3/uL (0-0.8); Hematocrit 37.9 % (41.0-53.0); Hemoglobin 12.8 g/dL (13.5-17.5); Lymphocytes # (auto) 0.4 10 ^3/uL (0.4-5.4); Lymphocytes % (auto) 5.3 % (10.0-50.0); Mean Corpuscular Hemoglobin 31.8 pg (28.0-32.0); Mean Corpuscular Hgb Conc. 33.6 g/dL (32.0-36.0); Mean Corpuscular Volume 94.6 fL (80.0-100.0); Monocytes # (auto) 0.2 10 ^3/uL (0-1.3); Neutrophils # (auto) 7.2 10 ^3/uL (1.6-8.6); Neutrophils % (auto) 91.7 % (37.0-80.0); Platelet Count (auto) 120 10^3/uL (140-450); Red Blood Cells 4.01 10^6/uL (4.5-5.90); Red Cell Distribution Width 14.7 % (11.8-14.3); White Blood Cell 7.9 10^3/uL (4.4-10.8)
[2021-04-13 05:57] LABS: BUN/Creatinine Ratio 25.9; Calcium 8.4 mg/dL (8.5-10.1); Potassium 4.2 mmol/L (3.5-5.1)
[2021-04-13] MEDS: ACCU-CHEK COMFORT CURVE STRIP VI SCH ×4 (06:46→22:02)
[2021-04-13 09:00] VITALS: BP_SYST 142; BP_SYST 143; BP_DIAS 71; BP_DIAS 74
[2021-04-13] MEDS ORDERED: RIVAROXABAN 10 MG TAB PO SCH (10:00)
[2021-04-13] MEDS: CARVEDILOL 3.125 MG TAB PO SCH ×2 (10:00→10:03)
[2021-04-13] MEDS: methylPREDNISolone SOD SUCC 125 MG/2 ML VL IV SCH (10:01)
[2021-04-13] MEDS: cefTRIAXone 1GM/50ML D5W 50 ML IV SCH (10:01)
[2021-04-13] MEDS: AZITHROMYCIN 500MG/ 250ML 250 ML IV SCH (10:02)
[2021-04-13] MEDS: FAMOTIDINE 20 MG TAB PO SCH (10:03)
[2021-04-13 12:45] VITALS: BP 128/68
[2021-04-13 16:49] VITALS: BP 160/57
[2021-04-13 22:00] VITALS: BP 139/75
[2021-04-13] MEDS: TAMSULOSIN HYDROCHLORIDE 0.4 MG CAP PO SCH (22:33)
[2021-04-13] MEDS: methylPREDNISolone SOD SUCC 40 MG/ML VL IV SCH (22:33)
[2021-04-13] MEDS: MORPHINE SULF INJ 2 MG/ML SYRINGE 1ML IV PRN (23:03)
[2021-04-14 05:00] VITALS: BP 151/94
[2021-04-14] MEDS: ACCU-CHEK COMFORT CURVE STRIP VI SCH ×3 (06:31→17:24)
[2021-04-14] MEDS: InsuLIN REG 1unit/0.01ml Soln (100units/ml) SC SCH ×3 (06:34→17:19)
[2021-04-14] MEDS: MORPHINE SULF INJ 2 MG/ML SYRINGE 1ML IV PRN ×2 (06:38→10:04)
[2021-04-14] MEDS: ALBUTEROL SULF 2.5 MG/0.5ML(0.5%) NEB SOLN NEB SCH ×3 (08:11→18:44)
[2021-04-14] MEDS: IPRATROPIUM BROM 0.5 MG/2.5ML INH SOL NEB SCH ×3 (08:11→18:44)
[2021-04-14] MEDS: BUDESONIDE (INHALATION) 0.5 MG/2 ML NEB NEB SCH ×2 (08:11→18:44)
[2021-04-14] MEDS: AZITHROMYCIN 500MG/ 250ML 250 ML IV SCH (08:57)
[2021-04-14] MEDS: methylPREDNISolone SOD SUCC 40 MG/ML VL IV SCH (08:57)
[2021-04-14] MEDS: cefTRIAXone 1GM/50ML D5W 50 ML IV SCH (08:57)
[2021-04-14] MEDS: ASPirin-EC 81 mg tab PO SCH (08:58)
[2021-04-14] MEDS: FAMOTIDINE 20 MG TAB PO SCH (08:58)
[2021-04-14] MEDS: CARVEDILOL 3.125 MG TAB PO SCH (08:58)
[2021-04-14 09:00] VITALS: BP 155/61
[2021-04-14 13:00] VITALS: BP 164/100
[2021-04-14] MEDS ORDERED: amLODIPine BESYLATE 5 MG TAB PO ONE (13:30)
[2021-04-14 17:00] VITALS: BP 155/57
[2021-04-14] MEDS ORDERED: FUROSEMIDE 40 MG/4 ML VIAL IV ONE (21:00)
[2021-04-14] MEDS ORDERED: DEXTROSE (50%) 50ML SYRG IV PRN (21:15)
[2021-04-14] MEDS: TAMSULOSIN HYDROCHLORIDE 0.4 MG CAP PO SCH (21:42)
[2021-04-14 22:00] VITALS: BP 126/72
[2021-04-14] MEDS: PIPERACILLIN-TAZO 4.5GM 100 ML IV SCH (22:12)
[2021-04-15 05:00] VITALS: BP 120/79
[2021-04-15] MEDS: ACCU-CHEK COMFORT CURVE STRIP VI SCH ×4 (06:00→17:35)
[2021-04-15] MEDS: PIPERACILLIN-TAZO 4.5GM 100 ML IV SCH ×3 (06:43→22:49)
[2021-04-15] MEDS: InsuLIN REG 1unit/0.01ml Soln (100units/ml) SC SCH ×4 (06:46→17:36)
[2021-04-15] MEDS: BUDESONIDE (INHALATION) 0.5 MG/2 ML NEB NEB SCH ×2 (06:56→18:45)
[2021-04-15] MEDS: IPRATROPIUM BROM 0.5 MG/2.5ML INH SOL NEB SCH ×3 (06:56→18:45)
[2021-04-15] MEDS: ALBUTEROL SULF 2.5 MG/0.5ML(0.5%) NEB SOLN NEB SCH ×3 (06:56→18:45)
[2021-04-15 09:00] VITALS: BP 148/89
[2021-04-15] MEDS ORDERED: methylPREDNISolone SOD SUCC 40 MG/ML VL IV SCH (10:00)
[2021-04-15] MEDS: amLODIPine BESYLATE 5 MG TAB PO SCH (10:17)
[2021-04-15] MEDS: ASPirin-EC 81 mg tab PO SCH (10:17)
[2021-04-15] MEDS: FAMOTIDINE 20 MG TAB PO SCH (10:17)
[2021-04-15] MEDS: ENOXAPARIN SOD 40 MG/0.4 ML SYRINGE SC SCH (10:17)
[2021-04-15] MEDS: FUROSEMIDE 40 MG/4 ML VIAL IV SCH (10:18)
[2021-04-15] MEDS: CARVEDILOL 3.125 MG TAB PO SCH (10:18)
[2021-04-15 10:44] LABS: Albumin 3.2 g/dL (3.4-5.0); Calcium 8.7 mg/dL (8.5-10.1); Potassium 3.7 mmol/L (3.5-5.1)
[2021-04-15 10:47] LABS: BUN/Creatinine Ratio 28.9; Bilirubin, Total 0.4 mg/dL (0.2-1.0); Total Protein 7.3 g/dL (6.4-8.2)
[2021-04-15] MEDS ORDERED: POTASSIUM CHL 20 Meq TABLET PO ONE (12:30)
[2021-04-15 13:00] VITALS: BP 123/65
[2021-04-15] MEDS: MORPHINE SULF INJ 2 MG/ML SYRINGE 1ML IV PRN (15:39)
[2021-04-15] MEDS ORDERED: FUROSEMIDE 40 MG/4 ML VIAL IV ONE (16:30)
[2021-04-15 17:00] VITALS: BP 121/79
[2021-04-15] MEDS: metFORMIN HYDROCHLORIDE 500 MG TAB PO SCH (17:35)
[2021-04-15 22:00] VITALS: BP 119/75
[2021-04-15] MEDS: DOCUSATE SOD 100 MG CAP PO SCH (22:49)
[2021-04-15] MEDS: TAMSULOSIN HYDROCHLORIDE 0.4 MG CAP PO SCH (22:50)
[2021-04-16] VITALS (7 sets, daily range): BP systolic 106–142; BP diastolic 64–96
[2021-04-16] MEDS: ACCU-CHEK COMFORT CURVE STRIP VI SCH ×4 (00:02→17:29)
[2021-04-16] MEDS: InsuLIN REG 1unit/0.01ml Soln (100units/ml) SC SCH ×4 (00:03→17:30)
[2021-04-16] MEDS: BUDESONIDE (INHALATION) 0.5 MG/2 ML NEB NEB SCH ×2 (06:15→18:28)
[2021-04-16] MEDS: ALBUTEROL SULF 2.5 MG/0.5ML(0.5%) NEB SOLN NEB SCH ×3 (06:15→18:28)
[2021-04-16] MEDS: IPRATROPIUM BROM 0.5 MG/2.5ML INH SOL NEB SCH ×3 (06:15→18:27)
[2021-04-16] MEDS: PIPERACILLIN-TAZO 4.5GM 100 ML IV SCH ×3 (06:17→22:49)
[2021-04-16 06:18] LABS: Basophils # (auto) 0 10 ^3/uL (0-0.2); Basophils % (auto) 0.1 % (0.0-2.0); Eosinophils # (auto) 0 10 ^3/uL (0-0.8); Eosinophils % (auto) 0.1 % (0.0-7.0); Hematocrit 43.4 % (41.0-53.0); Hemoglobin 14.3 g/dL (13.5-17.5); Lymphocytes % (auto) 11.1 % (10.0-50.0); Mean Corpuscular Hemoglobin 30.6 pg (28.0-32.0); Mean Corpuscular Hgb Conc. 32.9 g/dL (32.0-36.0); Mean Corpuscular Volume 92.9 fL (80.0-100.0); Monocytes # (auto) 1.2 10 ^3/uL (0-1.3); Monocytes % (auto) 13.6 % (0.0-12.0); Neutrophils # (auto) 6.5 10 ^3/uL (1.6-8.6); Neutrophils % (auto) 75.1 % (37.0-80.0); Nucleated Red Blood Cells % 0.1 %; Platelet Count (auto) 181 10^3/uL (140-450); Red Blood Cells 4.67 10^6/uL (4.5-5.90); Red Cell Distribution Width 14.4 % (11.8-14.3); White Blood Cell 8.6 10^3/uL (4.4-10.8)
[2021-04-16 06:37] LABS: BUN/Creatinine Ratio 33.7; Calcium 8.5 mg/dL (8.5-10.1); Potassium 3.6 mmol/L (3.5-5.1)
[2021-04-16] MEDS: metFORMIN HYDROCHLORIDE 500 MG TAB PO SCH ×2 (08:19→18:29)
[2021-04-16] MEDS: DOCUSATE SOD 100 MG CAP PO SCH ×2 (09:48→22:49)
[2021-04-16] MEDS: FUROSEMIDE 40 MG/4 ML VIAL IV SCH (09:48)
[2021-04-16] MEDS: predniSONE 20 MG TAB PO SCH (09:48)
[2021-04-16] MEDS: CARVEDILOL 3.125 MG TAB PO SCH (09:49)
[2021-04-16] MEDS: ASPirin-EC 81 mg tab PO SCH (09:49)
[2021-04-16] MEDS: amLODIPine BESYLATE 5 MG TAB PO SCH (09:50)
[2021-04-16] MEDS: ENOXAPARIN SOD 40 MG/0.4 ML SYRINGE SC SCH (09:51)
[2021-04-16] MEDS: FAMOTIDINE 20 MG TAB PO SCH (09:51)
[2021-04-16] MEDS ORDERED: TEMAZEPAM 15 MG CAP PO PRN (20:15)
[2021-04-16] MEDS: TAMSULOSIN HYDROCHLORIDE 0.4 MG CAP PO SCH (22:50)
[2021-04-17 05:00] VITALS: BP 158/90
[2021-04-17] MEDS: InsuLIN REG 1unit/0.01ml Soln (100units/ml) SC SCH ×4 (06:00→18:00)
[2021-04-17] MEDS: ACCU-CHEK COMFORT CURVE STRIP VI SCH ×4 (06:00→18:02)
[2021-04-17] MEDS: PIPERACILLIN-TAZO 4.5GM 100 ML IV SCH ×3 (06:18→22:22)
[2021-04-17] MEDS: IPRATROPIUM BROM 0.5 MG/2.5ML INH SOL NEB SCH ×3 (06:59→19:18)
[2021-04-17] MEDS: ALBUTEROL SULF 2.5 MG/0.5ML(0.5%) NEB SOLN NEB SCH ×3 (06:59→19:18)
[2021-04-17] MEDS: BUDESONIDE (INHALATION) 0.5 MG/2 ML NEB NEB SCH ×2 (06:59→19:18)
[2021-04-17] MEDS: metFORMIN HYDROCHLORIDE 500 MG TAB PO SCH ×2 (10:08→18:02)
[2021-04-17] MEDS: predniSONE 20 MG TAB PO SCH (10:11)
[2021-04-17] MEDS: FUROSEMIDE 40 MG/4 ML VIAL IV SCH (10:11)
[2021-04-17] MEDS: DOCUSATE SOD 100 MG CAP PO SCH ×2 (10:11→22:22)
[2021-04-17] MEDS: ENOXAPARIN SOD 40 MG/0.4 ML SYRINGE SC SCH (10:12)
[2021-04-17] MEDS: CARVEDILOL 3.125 MG TAB PO SCH (10:12)
[2021-04-17] MEDS: FAMOTIDINE 20 MG TAB PO SCH (10:12)
[2021-04-17] MEDS: amLODIPine BESYLATE 5 MG TAB PO SCH (10:13)
[2021-04-17] MEDS: ASPirin-EC 81 mg tab PO SCH (10:13)
[2021-04-17] MEDS: MORPHINE SULF INJ 2 MG/ML SYRINGE 1ML IV PRN ×3 (10:50→22:52)
[2021-04-17] MEDS ORDERED: OPTISON 3ml Vial for INJ IV ONE (12:00)
[2021-04-17 13:00] VITALS: BP 150/78
[2021-04-17 16:50] VITALS: BP 123/72
[2021-04-17 22:00] VITALS: BP 140/75
[2021-04-17] MEDS: TAMSULOSIN HYDROCHLORIDE 0.4 MG CAP PO SCH (22:22)
[2021-04-18] MEDS: ACCU-CHEK COMFORT CURVE STRIP VI SCH ×5 (00:30→23:49)
[2021-04-18] MEDS: InsuLIN REG 1unit/0.01ml Soln (100units/ml) SC SCH ×5 (00:36→23:50)
[2021-04-18 05:00] VITALS: BP 129/80
[2021-04-18] MEDS: MORPHINE SULF INJ 2 MG/ML SYRINGE 1ML IV PRN (05:19)
[2021-04-18] MEDS: PIPERACILLIN-TAZO 4.5GM 100 ML IV SCH (06:48)
[2021-04-18] MEDS: BUDESONIDE (INHALATION) 0.5 MG/2 ML NEB NEB SCH ×2 (06:56→19:06)
[2021-04-18] MEDS: IPRATROPIUM BROM 0.5 MG/2.5ML INH SOL NEB SCH ×3 (06:56→19:06)
[2021-04-18] MEDS: ALBUTEROL SULF 2.5 MG/0.5ML(0.5%) NEB SOLN NEB SCH ×3 (06:56→19:06)
[2021-04-18] MEDS: metFORMIN HYDROCHLORIDE 500 MG TAB PO SCH ×2 (07:50→17:28)
[2021-04-18 09:00] VITALS: BP 109/65
[2021-04-18] MEDS: predniSONE 20 MG TAB PO SCH (09:10)
[2021-04-18] MEDS: DOCUSATE SOD 100 MG CAP PO SCH ×2 (09:10→22:50)
[2021-04-18] MEDS: FUROSEMIDE 40 MG/4 ML VIAL IV SCH (09:10)
[2021-04-18] MEDS: ASPirin-EC 81 mg tab PO SCH (09:11)
[2021-04-18] MEDS: CARVEDILOL 3.125 MG TAB PO SCH (09:11)
[2021-04-18] MEDS: amLODIPine BESYLATE 5 MG TAB PO SCH (09:12)
[2021-04-18] MEDS: ENOXAPARIN SOD 40 MG/0.4 ML SYRINGE SC SCH (09:12)
[2021-04-18] MEDS: FAMOTIDINE 20 MG TAB PO SCH (09:12)
[2021-04-18] MEDS ORDERED: MAGNESIUM CITRATE SOLUTION 300 ML BTL PO ONE (10:15)
[2021-04-18 13:00] VITALS: BP 125/71
[2021-04-18 13:16] LABS: BUN/Creatinine Ratio 22.7; Calcium 8.7 mg/dL (8.5-10.1); Potassium 3.8 mmol/L (3.5-5.1)
[2021-04-18 17:00] VITALS: BP 124/63
[2021-04-18 22:00] VITALS: BP 121/71
[2021-04-18] MEDS: TAMSULOSIN HYDROCHLORIDE 0.4 MG CAP PO SCH (22:50)
[2021-04-19 05:00] VITALS: BP 138/81
[2021-04-19] MEDS: ACCU-CHEK COMFORT CURVE STRIP VI SCH ×2 (06:55→12:05)
[2021-04-19] MEDS: MORPHINE SULF INJ 2 MG/ML SYRINGE 1ML IV PRN ×2 (06:56→12:06)
[2021-04-19] MEDS: InsuLIN REG 1unit/0.01ml Soln (100units/ml) SC SCH ×2 (07:03→12:06)
[2021-04-19] MEDS: ALBUTEROL SULF 2.5 MG/0.5ML(0.5%) NEB SOLN NEB SCH ×2 (08:06→11:51)
[2021-04-19] MEDS: BUDESONIDE (INHALATION) 0.5 MG/2 ML NEB NEB SCH (08:07)
[2021-04-19] MEDS: IPRATROPIUM BROM 0.5 MG/2.5ML INH SOL NEB SCH ×2 (08:07→11:51)
[2021-04-19] MEDS ORDERED: cefTRIAXone 1GM/50ML D5W 50 ML IV SCH (09:00)
[2021-04-19] MEDS: ENOXAPARIN SOD 40 MG/0.4 ML SYRINGE SC SCH (09:03)
[2021-04-19] MEDS: FAMOTIDINE 20 MG TAB PO SCH (09:03)
[2021-04-19] MEDS: predniSONE 20 MG TAB PO SCH (09:03)
[2021-04-19 09:06] VITALS: BP 130/67
[2021-04-19] MEDS: DOCUSATE SOD 100 MG CAP PO SCH (09:06)
[2021-04-19] MEDS: amLODIPine BESYLATE 5 MG TAB PO SCH (09:06)
[2021-04-19] MEDS: CARVEDILOL 3.125 MG TAB PO SCH (09:06)
[2021-04-19] MEDS: metFORMIN HYDROCHLORIDE 500 MG TAB PO SCH (09:07)
[2021-04-19] MEDS ORDERED: AMLO-496 PO (10:29)
[2021-04-19] MEDS ORDERED: METF-370 PO (10:29)
[2021-04-19] MEDS ORDERED: FLEET ENEMA(ADULT) 135 ML PR ONE (10:30)
[2021-04-19 13:00] VITALS: BP 116/72
[2021-04-19 13:30] VITALS: BP 130/67
[2021-04-19 13:46] VITALS: BP 130/67
== END 2021-04-19 15:40 | disposition home health service (06) | DRG 291 ==
LOC: EDBD 13:25 → ER 13:25 → TELE 19:28 → TELE-EAST 23:11 → TELE-WESTW 04-13 07:57
PROVIDERS: ADMIT Nurse Practitioner Acute Care; ATTEND Internal Medicine
PROC: 5A09357 Assistance with Respiratory Ventilation, Less than 24 Consecutive Hours, Continuous Positive Airway Pressure (ICD-10-PCS; principal; 2021-04-13)
PROC: 5A09357 Assistance with Respiratory Ventilation, Less than 24 Consecutive Hours, Continuous Positive Airway Pressure (ICD-10-PCS; 2021-04-14)
PROC: 5A09357 Assistance with Respiratory Ventilation, Less than 24 Consecutive Hours, Continuous Positive Airway Pressure (ICD-10-PCS; 2021-04-17)
DX: I11.0 Hypertensive heart disease with heart failure (principal); J96.21 Acute and chronic respiratory failure with hypoxia; J18.9 Pneumonia, unspecified organism; J44.1 Chronic obstructive pulmonary disease with (acute) exacerbation; J44.0 Chronic obstructive pulmonary disease with (acute) lower respiratory infection; I50.43 Acute on chronic combined systolic (congestive) and diastolic (congestive) heart failure; D69.6 Thrombocytopenia, unspecified; G47.33 Obstructive sleep apnea (adult) (pediatric); E11.9 Type 2 diabetes mellitus without complications; E66.9 Obesity, unspecified; Z68.36 Body mass index [BMI] 36.0-36.9, adult; Z20.822 Contact with and (suspected) exposure to COVID-19; Z88.2 Allergy status to sulfonamides; I48.0 Paroxysmal atrial fibrillation; N40.0 Benign prostatic hyperplasia without lower urinary tract symptoms; Z79.4 Long term (current) use of insulin; Z79.01 Long term (current) use of anticoagulants; Z82.49 Family history of ischemic heart disease and other diseases of the circulatory system; Z83.3 Family history of diabetes mellitus; Z86.73 Personal history of transient ischemic attack (TIA), and cerebral infarction without residual deficits; Z95.0 Presence of cardiac pacemaker; Z79.899 Other long term (current) drug therapy
CPT/HCPCS: 36415; 36600; 71045; 71250; 80048; 80053; 81001; 82805; 82962; 83036; 83605; 83880; 84484; 85025; 85610; 85730; 87040; 87426; 92610; 93005; 93306; 94640; 94660; 94762; 96365; 96366; 96375; 97110; 97530; G0378; J0696; J1815; J2543; Q9956

== ENCOUNTER 2021-06-02 18:21 | Emergency (ER) | payer OTHER, MEDICAID ==
[~2021-06-02] VITALS: Ht 180.3 cm; Wt 113.4 kg
[~2021-06-02 18:21] MED LIST changes: +AMLO-496 PO; -ASPI1TAB19 PO; +BACL10TA PO; +CARV3.1240 PO; +DICL50TA2 PO; -DOXY-286 PO; -FER325T PO; +FERR325T20 PO; -FERR45TA7 PO; -HYDR-2601 PO; -MEMA10TA PO; +MEMA1TAB5 PO; +METF-370 PO; -MULT0.07 PO; -RIVA10TA PO; +SIMV-8 PO; -SIMV20TA2 NG; -TAM04C PO; +TAMS0.4C36 PO; +TRAM50TA2 PO
[2021-06-02] MEDS ORDERED: SODIUM CHLORIDE 0.9% 500 ML IV ONE (19:30)
[2021-06-02 21:24] LABS: Basophils # (auto) 0 10 ^3/uL (0-0.2); Basophils % (auto) 0.5 % (0.0-2.0); Eosinophils # (auto) 0.1 10 ^3/uL (0-0.8); Eosinophils % (auto) 0.6 % (0.0-7.0); Hematocrit 38.5 % (41.0-53.0); Hemoglobin 13.1 g/dL (13.5-17.5); Lymphocytes # (auto) 1.5 10 ^3/uL (0.4-5.4); Lymphocytes % (auto) 17.7 % (10.0-50.0); Mean Corpuscular Hemoglobin 31.6 pg (28.0-32.0); Monocytes % (auto) 12.2 % (0.0-12.0); Neutrophils # (auto) 5.8 10 ^3/uL (1.6-8.6); Nucleated Red Blood Cells % 0.2 %; Platelet Count (auto) 181 10^3/uL (140-450); Red Blood Cells 4.14 10^6/uL (4.5-5.90); Red Cell Distribution Width 15.1 % (11.8-14.3); White Blood Cell 8.4 10^3/uL (4.4-10.8)
[2021-06-02 22:00] LABS: Albumin 3.1 g/dL (3.4-5.0); Anion Gap 3 (5-15); Blood Urea Nitrogen 17 mg/dL (7-18); Calcium 8.4 mg/dL (8.5-10.1); Carbon Dioxide 36 mmol/L (21-32); Chloride 100 mmol/L (98-107); Glucose 158 mg/dL (74-106); Magnesium 2.1 mg/dL (1.6-2.6); Potassium 4.3 mmol/L (3.5-5.1); Sodium 139 mmol/L (136-145)
[2021-06-02 22:04] LABS: Alanine Aminotransferase 20 U/L (16-61); Alkaline Phosphatase 70 U/L (45-117); Aspartate Aminotransferase 23 U/L (15-37); BUN/Creatinine Ratio 20.2; Bilirubin, Total 0.3 mg/dL (0.2-1.0); GFR African American 111 mL/min; GFR Non-African American 92 mL/min; Total Protein 6.7 g/dL (6.4-8.2)
[2021-06-03 09:55] VITALS: BP 158/76
== END 2021-06-03 10:15 | disposition home or self-care (01) ==
LOC: EDBD 18:21 → ER 18:21
DX: K11.7 Disturbances of salivary secretion (principal); F80.89 Other developmental disorders of speech and language; I10 Essential (primary) hypertension; E11.9 Type 2 diabetes mellitus without complications; I48.91 Unspecified atrial fibrillation; J44.9 Chronic obstructive pulmonary disease, unspecified; Z86.73 Personal history of transient ischemic attack (TIA), and cerebral infarction without residual deficits; Z95.0 Presence of cardiac pacemaker; Z79.899 Other long term (current) drug therapy; Z88.2 Allergy status to sulfonamides; Z20.822 Contact with and (suspected) exposure to COVID-19
CPT/HCPCS: 36415; 36600; 70450; 71045; 80053; 82805; 83605; 83735; 84484; 85025; 85049; 87426; 93005; 96360; 96361

== ENCOUNTER 2021-07-01 02:37 | Inpatient (IN) | payer MEDICARE, MEDICAID ==
[~2021-07-01] VITALS: Ht 188 cm; Wt 96.0 kg
[2021-07-01 03:45] LABS: Hematocrit 43.8 % (41.0-53.0); Hemoglobin 14.1 g/dL (13.5-17.5); Mean Corpuscular Hemoglobin 30.3 pg (28.0-32.0); Mean Corpuscular Hgb Conc. 32.2 g/dL (32.0-36.0); Mean Corpuscular Volume 94.2 fL (80.0-100.0); Red Blood Cells 4.65 10^6/uL (4.5-5.90); White Blood Cell 27.3 10^3/uL (4.4-10.8)
[2021-07-01 04:03] LABS: Albumin 3.1 g/dL (3.4-5.0); Anion Gap 9 (5-15); Basophils % (manual) 0 (0.0-2.0); Blast Cells 0; Blood Urea Nitrogen 17 mg/dL (7-18); Calcium 8.7 mg/dL (8.5-10.1); Carbon Dioxide 27 mmol/L (21-32); Chloride 98 mmol/L (98-107); Eosinophils % (manual) 0 (0-7); Glucose 199 mg/dL (74-106); Metamyelocytes % 0; Myelocytes % 0; Potassium 4.2 mmol/L (3.5-5.1); Promyelocytes % 0; Reactive Lymphocytes 0; Sodium 134 mmol/L (136-145)
[2021-07-01 04:08] LABS: Alanine Aminotransferase 14 U/L (16-61); Alkaline Phosphatase 71 U/L (45-117); Aspartate Aminotransferase 6 U/L (15-37); BUN/Creatinine Ratio 22.7; Bilirubin, Total 0.8 mg/dL (0.2-1.0); GFR African American 126 mL/min; GFR Non-African American 104 mL/min; Total Protein 7.8 g/dL (6.4-8.2)
[2021-07-01 04:23] LABS: Band Neutrophils % (manual) 27; Lymphocytes % (manual) 5 (10.0-50.0); Monocytes % (manual) 4 (0-12)
[2021-07-01] MEDS ORDERED: PIPERACILLIN-TAZOB 3.375GM 100 ML IV ONE (05:00)
[2021-07-01] MEDS ORDERED: MORPHINE SULF INJ 2 MG/ML SYRINGE 1ML IV ONE (05:00)
[2021-07-01] MEDS ORDERED: SODIUM CHLORIDE 0.9% 500 ML IV ONE (05:00)
[2021-07-01] MEDS ORDERED: ONDANSETRON HCL 4 MG/2 ML VIAL IV ONE (05:00)
[2021-07-01] MEDS ORDERED: VANCOMYCIN 1GM/250ML 250 ML IV ONE (05:00)
[2021-07-01] MEDS ORDERED: ACETAMINOPHEN 500 MG TAB PO ONE (05:45)
[2021-07-01] MEDS ORDERED: HYDROcodone-ACET 5/325MG TAB PO PRN (06:30)
[2021-07-01] MEDS ORDERED: ONDANSETRON HCL 4 MG/2 ML VIAL IV PRN (06:30)
[2021-07-01] MEDS ORDERED: MORPHINE SULF INJ 2 MG/ML SYRINGE 1ML IV PRN ×2 (06:30→12:30)
[2021-07-01] MEDS ORDERED: DEXTROSE (50%) 50ML SYRG IV PRN (06:30)
[2021-07-01] MEDS ORDERED: VANCOMYCIN PER PHARMACY 0 MG IV SCH (06:30)
[2021-07-01] MEDS ORDERED: ACETAMINOPHEN 325 MG TAB PO PRN (06:30)
[2021-07-01] MEDS ORDERED: DOCUSATE SOD 100 MG CAP PO PRN (06:30)
[2021-07-01] MEDS ORDERED: NITROGLYCERIN 0.4 MG SL TAB SL PRN (06:30)
[2021-07-01] MEDS: ACCU-CHEK COMFORT CURVE STRIP VI SCH ×4 (08:25→22:00)
[2021-07-01] MEDS: InsuLIN REG 1unit/0.01ml Soln (100units/ml) SC SCH ×4 (08:35→23:11)
[2021-07-01 08:56] LABS: Red Cell Distribution Width 14.9 % (11.8-14.3)
[2021-07-01 08:57] LABS: Hemoglobin 12.9 g/dL (13.5-17.5); Mean Corpuscular Hemoglobin 31.1 pg (28.0-32.0); Mean Corpuscular Hgb Conc. 33.1 g/dL (32.0-36.0); Mean Corpuscular Volume 94.1 fL (80.0-100.0); Red Blood Cells 4.14 10^6/uL (4.5-5.90)
[2021-07-01] MEDS ORDERED: cefTRIAXone 1GM/50ML D5W 50 ML IV SCH (09:00)
[2021-07-01 09:02] LABS: White Blood Cell 37.9 10^3/uL (4.4-10.8)
[2021-07-01 09:04] LABS: Basophils % (manual) 0 (0.0-2.0); Blast Cells 0; Eosinophils % (manual) 0 (0-7); Metamyelocytes % 0; Myelocytes % 0; Promyelocytes % 0; Reactive Lymphocytes 0
[2021-07-01 09:28] LABS: Band Neutrophils % (manual) 6; Lymphocytes % (manual) 2 (10.0-50.0); Monocytes % (manual) 2 (0-12)
[2021-07-01] MEDS: FAMOTIDINE (10MG/ML) 2ML VL IV SCH ×2 (10:08→22:26)
[2021-07-01] MEDS: ZINC SULFATE 220mg CAP or TAB PO SCH ×2 (10:09→19:43)
[2021-07-01] MEDS: ASPirin 81 mg TAB PO SCH ×2 (10:09→19:43)
[2021-07-01] MEDS: FUROSEMIDE 20 MG/2 ML VIAL IV SCH ×2 (10:09→19:43)
[2021-07-01] MEDS: MULTIPLE VITAMIN TAB PO SCH ×2 (10:10→19:44)
[2021-07-01] MEDS: CARVEDILOL 3.125 MG TAB PO SCH ×3 (10:10→22:27)
[2021-07-01] MEDS: ASCORBIC ACID 500 MG TAB PO SCH ×3 (10:10→22:29)
[2021-07-01] MEDS: ENOXAPARIN SOD 40 MG/0.4 ML SYRINGE SC SCH (10:10)
[2021-07-01 11:00] VITALS: BP 111/63
[2021-07-01 12:46] LABS: Calcium 7.9 mg/dL (8.5-10.1); Potassium 3.9 mmol/L (3.5-5.1)
[2021-07-01 12:54] LABS: Albumin 2.4 g/dL (3.4-5.0); BUN/Creatinine Ratio 18.5; Bilirubin, Total 0.4 mg/dL (0.2-1.0); Total Protein 6.6 g/dL (6.4-8.2)
[2021-07-01 13:00] VITALS: BP 105/59
[2021-07-01] MEDS ORDERED: ACET-1156 PO (13:42)
[2021-07-01] MEDS: SODIUM CHLOR 0.9% PF (SALINE LOCK) 10ML VIAL/SYR IV SCH ×2 (14:00→22:00)
[2021-07-01] MEDS: MEROPENEM 1GM IVPB 100 ML IV SCH ×2 (14:00→23:09)
[2021-07-01] MEDS: ALBUTEROL SULF 2.5 MG/0.5ML(0.5%) NEB SOLN NEB SCH ×3 (14:37→22:30)
[2021-07-01] MEDS: IPRATROPIUM BROM 0.5 MG/2.5ML INH SOL NEB PRN ×3 (14:37→22:30)
[2021-07-01] MEDS: ACETYLCYSTEINE 10 %(100MG/ML) SOL 4ML NEB SCH ×3 (14:37→22:30)
[2021-07-01] MEDS: MORPHINE SULF INJ 2 MG/ML SYRINGE 1ML IV PRN (15:13)
[2021-07-01 15:45] LABS: Urine Bacteria NONE SEEN /hpf (None Seen); Urine Blood Negative /uL (Negative); Urine Mucus FEW (None Seen); Urine Specific Gravity 1.017 (1.001-1.035); Urine WBC 1 /hpf (0 - 3)
[2021-07-01 17:00] VITALS: BP 127/69
[2021-07-01] MEDS: TAMSULOSIN HYDROCHLORIDE 0.4 MG CAP PO SCH (18:00)
[2021-07-01] MEDS: VANCOMYCIN 1GM/250ML 250 ML IV SCH (18:59)
[2021-07-01] MEDS: BUDESONIDE (INHALATION) 0.5 MG/2 ML NEB NEB SCH (20:03)
[2021-07-01 21:09] VITALS: BP 127/69
[2021-07-01 21:56] VITALS: BP 101/50
[2021-07-01] MEDS: ATORVASTATIN 20 MG TAB PO SCH (22:29)
[2021-07-02] MEDS: IPRATROPIUM BROM 0.5 MG/2.5ML INH SOL NEB PRN ×3 (02:59→22:11)
[2021-07-02] MEDS: ACETYLCYSTEINE 10 %(100MG/ML) SOL 4ML NEB SCH ×6 (03:00→22:11)
[2021-07-02] MEDS: ALBUTEROL SULF 2.5 MG/0.5ML(0.5%) NEB SOLN NEB SCH ×6 (03:00→22:11)
[2021-07-02] MEDS: MORPHINE SULF INJ 2 MG/ML SYRINGE 1ML IV PRN ×3 (03:35→15:21)
[2021-07-02 05:00] VITALS: BP 105/32
[2021-07-02] MEDS: SODIUM CHLOR 0.9% PF (SALINE LOCK) 10ML VIAL/SYR IV SCH ×2 (06:09→14:00)
[2021-07-02] MEDS: VANCOMYCIN 1GM/250ML 250 ML IV SCH ×2 (06:42→20:49)
[2021-07-02] MEDS: BUDESONIDE (INHALATION) 0.5 MG/2 ML NEB NEB SCH ×2 (06:51→18:43)
[2021-07-02] MEDS: InsuLIN REG 1unit/0.01ml Soln (100units/ml) SC SCH ×4 (06:55→22:40)
[2021-07-02] MEDS: ACCU-CHEK COMFORT CURVE STRIP VI SCH ×4 (07:00→22:00)
[2021-07-02] MEDS: MEROPENEM 1GM IVPB 100 ML IV SCH ×2 (08:20→17:09)
[2021-07-02 09:00] VITALS: BP 102/56
[2021-07-02] MEDS: FUROSEMIDE 20 MG/2 ML VIAL IV SCH (10:36)
[2021-07-02] MEDS: FAMOTIDINE (10MG/ML) 2ML VL IV SCH ×2 (10:36→21:39)
[2021-07-02] MEDS: ASPirin 81 mg TAB PO SCH (10:36)
[2021-07-02] MEDS: ZINC SULFATE 220mg CAP or TAB PO SCH (10:37)
[2021-07-02] MEDS: MULTIPLE VITAMIN TAB PO SCH (10:37)
[2021-07-02] MEDS: ENOXAPARIN SOD 40 MG/0.4 ML SYRINGE SC SCH (10:37)
[2021-07-02] MEDS: CARVEDILOL 3.125 MG TAB PO SCH ×2 (10:37→21:41)
[2021-07-02] MEDS: ASCORBIC ACID 500 MG TAB PO SCH ×2 (10:37→21:41)
[2021-07-02 10:53] LABS: Basophils # (auto) 0 10 ^3/uL (0-0.2); Basophils % (auto) 0.1 % (0.0-2.0); Eosinophils # (auto) 0 10 ^3/uL (0-0.8); Eosinophils % (auto) 0.2 % (0.0-7.0); Hemoglobin 12.3 g/dL (13.5-17.5); Lymphocytes # (auto) 0.8 10 ^3/uL (0.4-5.4); Lymphocytes % (auto) 4.3 % (10.0-50.0); Mean Corpuscular Hgb Conc. 33.2 g/dL (32.0-36.0); Mean Corpuscular Volume 93.3 fL (80.0-100.0); Monocytes # (auto) 0.9 10 ^3/uL (0-1.3); Monocytes % (auto) 4.5 % (0.0-12.0); Neutrophils # (auto) 17.7 10 ^3/uL (1.6-8.6); Neutrophils % (auto) 90.9 % (37.0-80.0); Red Blood Cells 3.96 10^6/uL (4.5-5.90); Red Cell Distribution Width 14.9 % (11.8-14.3); White Blood Cell 19.4 10^3/uL (4.4-10.8)
[2021-07-02 11:21] LABS: Albumin 2.2 g/dL (3.4-5.0); Calcium 7.8 mg/dL (8.5-10.1); Potassium 3.9 mmol/L (3.5-5.1)
[2021-07-02 11:25] LABS: BUN/Creatinine Ratio 23.3; Bilirubin, Total 0.3 mg/dL (0.2-1.0); Total Protein 6.3 g/dL (6.4-8.2)
[2021-07-02 13:00] VITALS: BP_SYST 110; BP_SYST 138; BP_DIAS 61; BP_DIAS 64
[2021-07-02 17:00] VITALS: BP 106/63
[2021-07-02] MEDS: TAMSULOSIN HYDROCHLORIDE 0.4 MG CAP PO SCH (18:07)
[2021-07-02] MEDS: ATORVASTATIN 20 MG TAB PO SCH (21:41)
[2021-07-02 22:00] VITALS: BP 128/62
[2021-07-02] MEDS ORDERED: MUPIROCIN 2% OINT 15gm or 22gm EACHNOSTRI SCH (22:00)
[2021-07-03] MEDS: MEROPENEM 1GM IVPB 100 ML IV SCH
[2021-07-03] MEDS: ALBUTEROL SULF 2.5 MG/0.5ML(0.5%) NEB SOLN NEB SCH (02:03)
[2021-07-03] MEDS: IPRATROPIUM BROM 0.5 MG/2.5ML INH SOL NEB PRN (02:03)
[2021-07-03] MEDS: ACETYLCYSTEINE 10 %(100MG/ML) SOL 4ML NEB SCH (02:04)
== END 2021-07-03 09:01 | DRG 177 ==
LOC: EDBD 02:37 → ER 02:37 → TELE 06:36 → TELE-CENTR 11:06
PROVIDERS: ADMIT Nurse Practitioner Family; ATTEND Internal Medicine
PROC: 5A09357 Assistance with Respiratory Ventilation, Less than 24 Consecutive Hours, Continuous Positive Airway Pressure (ICD-10-PCS; principal; 2021-07-01)
PROC: 5A09357 Assistance with Respiratory Ventilation, Less than 24 Consecutive Hours, Continuous Positive Airway Pressure (ICD-10-PCS; 2021-07-02)
DX: J15.212 Pneumonia due to Methicillin resistant Staphylococcus aureus (principal); J96.21 Acute and chronic respiratory failure with hypoxia; J96.22 Acute and chronic respiratory failure with hypercapnia; G93.41 Metabolic encephalopathy; I50.33 Acute on chronic diastolic (congestive) heart failure; E87.1 Hypo-osmolality and hyponatremia; J44.0 Chronic obstructive pulmonary disease with (acute) lower respiratory infection; J44.1 Chronic obstructive pulmonary disease with (acute) exacerbation; I48.20 Chronic atrial fibrillation, unspecified; E11.65 Type 2 diabetes mellitus with hyperglycemia; G47.30 Sleep apnea, unspecified; F03.90 Unspecified dementia, unspecified severity, without behavioral disturbance, psychotic disturbance, mood disturbance, and anxiety; N40.0 Benign prostatic hyperplasia without lower urinary tract symptoms; D72.829 Elevated white blood cell count, unspecified; Z20.822 Contact with and (suspected) exposure to COVID-19; I11.0 Hypertensive heart disease with heart failure; Z79.84 Long term (current) use of oral hypoglycemic drugs; Z82.49 Family history of ischemic heart disease and other diseases of the circulatory system; Z83.3 Family history of diabetes mellitus; Z86.73 Personal history of transient ischemic attack (TIA), and cerebral infarction without residual deficits; Z88.2 Allergy status to sulfonamides; Z66 Do not resuscitate
CPT/HCPCS: 36415; 36600; 71045; 71250; 74176; 80053; 80061; 80202; 81001; 82805; 82962; 83036; 83605; 83735; 83880; 84484; 85007; 85025; 85027; 87040; 87081; 87086; 87088; 87186; 87426; 92610; 93005; 94640; 94660; 94667; 96365; 96367; 96372; 96375; G0378; J0696; J1815; J2185; J2405; J2543; J3490